=== PATIENT | female | born 1970 | race Two or more races ===

== ENCOUNTER → 2016-04-26 | Outpatient (CLI) | payer BC ==
[~2016-04-26] MED LIST: CINN500C7 PO; LOSA50TA6 BC; METF-312 PO; MULT-569 PO; OMEG306C OR; PANT40T PO; TURM500C3 PO
[2016-04-26 10:40] LABS: Basophils # (auto) 0 uL; Basophils % (auto) 0.5 % (0.0-2.0); Eosinophils # (auto) 0.1 uL; Eosinophils % (auto) 2.1 % (0.0-7.0); Hematocrit 43.8 % (36.0-46.0); Hemoglobin 14.8 g/dL (12.2-16.2); Lymphocytes # (auto) 2.6 uL; Lymphocytes % (auto) 41.4 % (10.0-50.0); Mean Corpuscular Hemoglobin 28.4 pg (28.0-32.0); Mean Corpuscular Hgb Conc. 33.8 g/dL (32.0-36.0); Mean Platelet Volume 9.4 fL (7.4-10.4); Monocytes # (auto) 0.3 uL; Monocytes % (auto) 5.5 % (0.0-12.0); Neutrophils # (auto) 3.1 uL; Neutrophils % (auto) 50.5 % (37.0-80.0); Platelet Count (auto) 213 10^3/uL (140-450); Red Cell Distribution Width 12.2 % (11.6-16.0); White Blood Cell 6.2 10^3/uL (4.4-10.8)
[2016-04-26 10:46] LABS: Urine Bilirubin Negative (Negative); Urine Blood Negative /uL (Negative); Urine Color Yellow (Yellow); Urine Ketone Negative (Negative); Urine Nitrite Negative (Negative); Urine RBC 1 /hpf (0 - 4); Urine Squamous Epithelial Cell FEW /hpf (<5); Urine Urobilinogen Normal (Negative); Urine pH 6.5 (5.0-8.0)
[2016-04-26 10:50] LABS: Urine Glucose 4+ mg/dL (Normal)
[2016-04-26 10:55] LABS: Albumin 4.1 g/dL (3.4-5.0); Alkaline Phosphatase 171 U/L (45-117); Anion Gap 8 (5-15); Aspartate Aminotransferase 23 U/L (15-37); BUN/Creatinine Ratio 15.5; Bilirubin, Total 0.5 mg/dL (0.2-1.0); Blood Urea Nitrogen 11 mg/dL (7-18); Calcium 9.1 mg/dL (8.5-10.1); Carbon Dioxide 30 mmol/L (21-32); Chloride 101 mmol/L (98-107); Cholesterol 254 mg/dL (<200); GFR African American 114 mL/min; GFR Non-African American 94 mL/min; Glucose 300 mg/dL (74-106); HDL Cholesterol 41 mg/dL (40-59); Sodium 139 mmol/L (136-145); Total Protein 7.9 g/dL (6.4-8.2); Triglycerides 411 mg/dL (<150)
== END | disposition home or self-care (01) ==
LOC: LAB 10:16
PROVIDERS: ATTEND Internal Medicine
DX: I10 Essential (primary) hypertension (principal); E78.2 Mixed hyperlipidemia; Z00.00 Encounter for general adult medical examination without abnormal findings; E11.9 Type 2 diabetes mellitus without complications
CPT/HCPCS: 36415; 80053; 80061; 81001; 82043; 83036; 84443; 85025

== ENCOUNTER → 2016-05-09 | Day surgery (SDC) | payer BC ==
[2016-05-08 16:54] LABS: Urine Bilirubin Negative (Negative); Urine Blood Negative /uL (Negative); Urine Color Yellow (Yellow); Urine Ketone Negative (Negative); Urine Nitrite Negative (Negative); Urine RBC <1 /hpf (0 - 4); Urine Squamous Epithelial Cell FEW /hpf (<5); Urine Urobilinogen Normal (Negative)
[2016-05-08 16:58] LABS: Urine Glucose 4+ mg/dL (Normal)
[2016-05-08 16:59] LABS: Basophils # (auto) 0 uL; Basophils % (auto) 0.4 % (0.0-2.0); Eosinophils # (auto) 0.1 uL; Hematocrit 42.4 % (36.0-46.0); Hemoglobin 14.5 g/dL (12.2-16.2); Lymphocytes % (auto) 42.9 % (10.0-50.0); Mean Corpuscular Hemoglobin 28.6 pg (28.0-32.0); Mean Corpuscular Hgb Conc. 34.2 g/dL (32.0-36.0); Mean Corpuscular Volume 83.8 fL (80.0-100.0); Mean Platelet Volume 10.5 fL (7.4-10.4); Monocytes # (auto) 0.4 uL; Monocytes % (auto) 5.6 % (0.0-12.0); Neutrophils # (auto) 3.4 uL; Neutrophils % (auto) 49.1 % (37.0-80.0); Platelet Count (auto) 229 10^3/uL (140-450); Red Cell Distribution Width 12.3 % (11.6-16.0); White Blood Cell 6.9 10^3/uL (4.4-10.8)
[2016-05-08 17:07] LABS: INR 0.94 (0.9-1.15); Partial Thromboplastin Time 26.1 sec (22.64-33.71); Prothrombin Time 10.1 sec (9.37-12.3)
[2016-05-08 17:25] LABS: Albumin 4.1 g/dL (3.4-5.0); BUN/Creatinine Ratio 13.6; Bilirubin, Total 0.4 mg/dL (0.2-1.0); Calcium 9.6 mg/dL (8.5-10.1); Potassium 3.6 mmol/L (3.5-5.1); Total Protein 7.6 g/dL (6.4-8.2)
[~2016-05-09] VITALS: Ht 30.5 cm; Wt 0.5 kg
[~2016-05-09] MED LIST changes: +BUPIVACAINE 0.75% INJ 10ML MPV SDV IJ ONE; +DEXAMETHASONE SOD PHOS 10MG/1ML VIAL INJ ONE; +GLYCOPYRROLATE 0.2 MG/ML 1ML VIAL ONE; +HYDROmorphone HCL 2 MG/ML VL ONE; +KETOROLAC TROMETH 60MG/2ML VIAL IM ONE; +MIDAZOLAM HCL 1MG/1ML-2 ML VIAL ONE; +ONDANSETRON HCL 4 MG/2 ML VIAL IV ONE; +ONDANSETRON HCL 4 MG/2 ML VIAL ONE; +PROPOFOL 10 MG/ML 20 ML IV ONE; +SODIUM CHLORIDE LOCK 20 ML ONE; +ceFAZolin 1GM VL ONE; +ceFAZolin 1GM/50ML D5W 50 ML IV ONE; +fentaNYL CITRATE 100 MCG/2 ML VL ONE
[2016-05-09] MEDS: HYDROmorphone HCL 2 MG/ML VL IV PRN ×2 (14:55→15:05)
[2016-05-09 15:44] VITALS: BP 122/84
== END | disposition home or self-care (01) ==
LOC: SUR 09:42
PROVIDERS: ATTEND Podiatrist Foot & Ankle Surgery
DX: M21.611 Bunion of right foot (principal); M21.621 Bunionette of right foot; I10 Essential (primary) hypertension; J40 Bronchitis, not specified as acute or chronic; E11.9 Type 2 diabetes mellitus without complications; E78.5 Hyperlipidemia, unspecified; E66.9 Obesity, unspecified; E78.00 Pure hypercholesterolemia, unspecified; K21.9 Gastro-esophageal reflux disease without esophagitis; Z90.710 Acquired absence of both cervix and uterus; B19.10 Unspecified viral hepatitis B without hepatic coma
CPT/HCPCS: 28113; 28296; 36415; 80053; 81001; 82962; 84702; 85025; 85610; 85730; C1713; C1769; J0690; J1100; J1170; J1885; J2250; J2405; J2704; J3010; J3490; L3260; V2790

== ENCOUNTER → 2016-05-29 | Day surgery (SDC) | payer BC ==
[2016-05-28 12:23] LABS: Basophils # (auto) 0 uL; Basophils % (auto) 0.5 % (0.0-2.0); Eosinophils # (auto) 0.1 uL; Eosinophils % (auto) 2.1 % (0.0-7.0); Hematocrit 44.6 % (36.0-46.0); Hemoglobin 14.7 g/dL (12.2-16.2); Lymphocytes # (auto) 2.5 uL; Lymphocytes % (auto) 42.3 % (10.0-50.0); Mean Corpuscular Hemoglobin 27.7 pg (28.0-32.0); Mean Platelet Volume 10.1 fL (7.4-10.4); Monocytes # (auto) 0.4 uL; Monocytes % (auto) 6.2 % (0.0-12.0); Neutrophils # (auto) 2.9 uL; Neutrophils % (auto) 48.9 % (37.0-80.0); Platelet Count (auto) 217 10^3/uL (140-450); Red Cell Distribution Width 12.4 % (11.6-16.0)
[2016-05-28 12:28] LABS: Urine Bilirubin Negative (Negative); Urine Blood Negative /uL (Negative); Urine Color Yellow (Yellow); Urine Ketone Negative (Negative); Urine Nitrite Negative (Negative); Urine RBC <1 /hpf (0 - 4); Urine Squamous Epithelial Cell FEW /hpf (<5); Urine Urobilinogen Normal (Negative); Urine pH 5.5 (5.0-8.0)
[2016-05-28 12:32] LABS: Urine Glucose 4+ mg/dL (Normal)
[2016-05-28 12:41] LABS: INR 0.96 (0.9-1.15); Partial Thromboplastin Time 25.4 sec (22.64-33.71); Prothrombin Time 10.4 sec (9.37-12.3)
[2016-05-28 12:42] LABS: Albumin 4.1 g/dL (3.4-5.0); BUN/Creatinine Ratio 18.6; Bilirubin, Total 0.5 mg/dL (0.2-1.0); Calcium 9.6 mg/dL (8.5-10.1); Potassium 3.9 mmol/L (3.5-5.1); Total Protein 7.5 g/dL (6.4-8.2)
[~2016-05-29] VITALS: Ht 167.6 cm; Wt 85.3 kg
[~2016-05-29] MED LIST changes: +ACCU-CHEK COMFORT CURVE STRIP VI ONE; -BUPIVACAINE 0.75% INJ 10ML MPV SDV IJ ONE; -DEXAMETHASONE SOD PHOS 10MG/1ML VIAL INJ ONE; -GLYCOPYRROLATE 0.2 MG/ML 1ML VIAL ONE; +HYDROmorphone HCL 2 MG/ML VL IV PRN; -HYDROmorphone HCL 2 MG/ML VL ONE; +InsuLIN REG 1unit/0.01ml Soln (100units/ml) ONE; +KETOROLAC TROMETH 30 MG/ML 1ML VIAL IV ONE; +KETOROLAC TROMETH 30 MG/ML 1ML VIAL ONE; -KETOROLAC TROMETH 60MG/2ML VIAL IM ONE; +LABETALOL HCL 5 MG/ML 4ML SYRINGE IV PRN; -LOSA50TA6 BC; +LOSA50TA6 OR; +MIDAZOLAM HCL 1MG/1ML-2 ML VIAL IV PRN; +MORPHINE SULF INJ 2 MG/ML SYRINGE 1ML IV PRN; -ONDANSETRON HCL 4 MG/2 ML VIAL ONE; -SODIUM CHLORIDE LOCK 20 ML ONE; -ceFAZolin 1GM VL ONE; +ePHEDrine SULFATE 50 MG/ML AMP IV PRN
[2016-05-29 09:49] VITALS: BP 116/83
== END ==
LOC: SUR 06:59
PROVIDERS: ATTEND Urology
DX: N20.0 Calculus of kidney (principal); I10 Essential (primary) hypertension; E78.00 Pure hypercholesterolemia, unspecified; E11.9 Type 2 diabetes mellitus without complications; J45.909 Unspecified asthma, uncomplicated; E66.9 Obesity, unspecified; Z68.31 Body mass index [BMI] 31.0-31.9, adult; E78.5 Hyperlipidemia, unspecified; Z90.710 Acquired absence of both cervix and uterus
CPT/HCPCS: 36415; 50590; 80053; 81001; 82962; 84702; 85025; 85610; 85730; J0690; J1815; J1885; J2250; J2704; J3010

== ENCOUNTER → 2016-08-08 | Outpatient (CLI) | payer BC ==
[~2016-08-08] MED LIST changes: -ACCU-CHEK COMFORT CURVE STRIP VI ONE; -HYDROmorphone HCL 2 MG/ML VL IV PRN; -InsuLIN REG 1unit/0.01ml Soln (100units/ml) ONE; -KETOROLAC TROMETH 30 MG/ML 1ML VIAL IV ONE; -KETOROLAC TROMETH 30 MG/ML 1ML VIAL ONE; -LABETALOL HCL 5 MG/ML 4ML SYRINGE IV PRN; -METF-312 PO; +METF-370 PO; -MIDAZOLAM HCL 1MG/1ML-2 ML VIAL IV PRN; -MIDAZOLAM HCL 1MG/1ML-2 ML VIAL ONE; -MORPHINE SULF INJ 2 MG/ML SYRINGE 1ML IV PRN; -ONDANSETRON HCL 4 MG/2 ML VIAL IV ONE; -PROPOFOL 10 MG/ML 20 ML IV ONE; -ceFAZolin 1GM/50ML D5W 50 ML IV ONE; -ePHEDrine SULFATE 50 MG/ML AMP IV PRN; -fentaNYL CITRATE 100 MCG/2 ML VL ONE
[2016-08-08 10:20] LABS: Urine RBC None Seen /hpf (0 - 4)
[2016-08-08 10:42] LABS: Urine Bilirubin Negative (Negative); Urine Blood Negative /uL (Negative); Urine Color Yellow (Yellow); Urine Ketone Negative (Negative); Urine Nitrite Negative (Negative); Urine Squamous Epithelial Cell FEW /hpf (<5); Urine Urobilinogen Normal (Negative); Urine pH 5.5 (5.0-8.0)
[2016-08-08 10:45] LABS: Urine Glucose 4+ mg/dL (Normal)
[2016-08-08 11:05] LABS: BUN/Creatinine Ratio 20.9
== END | disposition home or self-care (01) ==
LOC: LAB 09:50
PROVIDERS: ATTEND Internal Medicine
DX: E78.2 Mixed hyperlipidemia (principal)
CPT/HCPCS: 36415; 80048; 80061; 81001; 83036

== ENCOUNTER → 2016-11-21 | Outpatient (CLI) | payer BC ==
[~2016-11-21] MED LIST changes: +GLIP-116 PO; +INSUINJ37 SUBCUT; -METF-370 PO
[2016-11-22 06:06] LABS: Rheumatoid Arthritis Factor <10.0 IU/mL (0.0-13.9)
== END | disposition home or self-care (01) ==
LOC: LAB 12:06
PROVIDERS: ATTEND Internal Medicine
DX: M25.50 Pain in unspecified joint (principal); E11.9 Type 2 diabetes mellitus without complications
CPT/HCPCS: 36415; 83036; 86038; 86431; 86812

== ENCOUNTER 2016-11-23 08:39 | Day surgery (SDC) | payer BC ==
[2016-11-19 12:11] LABS: Basophils # (auto) 0 uL; Basophils % (auto) 0.2 % (0.0-2.0); Eosinophils # (auto) 0.1 uL; Eosinophils % (auto) 2.3 % (0.0-7.0); Hematocrit 43.8 % (36.0-46.0); Hemoglobin 14.9 g/dL (12.2-16.2); Lymphocytes # (auto) 2.6 uL; Lymphocytes % (auto) 48.1 % (10.0-50.0); Mean Corpuscular Hemoglobin 29.6 pg (28.0-32.0); Mean Corpuscular Hgb Conc. 33.9 g/dL (32.0-36.0); Mean Corpuscular Volume 87.1 fL (80.0-100.0); Mean Platelet Volume 10.1 fL (6.9-10.8); Monocytes # (auto) 0.4 uL; Monocytes % (auto) 7.1 % (0.0-12.0); Neutrophils # (auto) 2.3 uL; Neutrophils % (auto) 42.3 % (37.0-80.0); Nucleated Red Blood Cells % 0.2 %; Platelet Count (auto) 194 10^3/uL (140-450); Red Cell Distribution Width 12.9 % (11.8-14.3); White Blood Cell 5.5 10^3/uL (4.4-10.8)
[2016-11-19 12:48] LABS: INR 0.94 (0.9-1.15); Partial Thromboplastin Time 27.1 sec (22.64-33.71); Prothrombin Time 10.2 sec (9.37-12.3)
[~2016-11-23] VITALS: Ht 167.6 cm; Wt 88.0 kg
[2016-11-23] MEDS ORDERED: SODIUM CHLORIDE LOCK 10 ML ONE (10:31)
[2016-11-23] MEDS ORDERED: diphenhdrAMINE HCL 50 MG/1 ML VL ONE (10:32)
[2016-11-23] MEDS: MIDAZOLAM HCL 5 MG/ML-1ML VIAL ONE ×3 (10:34→10:46)
[2016-11-23] MEDS: fentaNYL CITRATE 100 MCG/2 ML VL ONE ×3 (10:34→10:46)
[2016-11-23 11:31] VITALS: BP 140/82
== END 2016-11-23 11:36 | disposition home or self-care (01) ==
LOC: GI 08:39
PROVIDERS: ATTEND Internal Medicine Gastroenterology
DX: K57.30 Diverticulosis of large intestine without perforation or abscess without bleeding (principal); K64.8 Other hemorrhoids; J40 Bronchitis, not specified as acute or chronic; Z90.710 Acquired absence of both cervix and uterus; E11.9 Type 2 diabetes mellitus without complications
CPT/HCPCS: 36415; 45378; 82962; 85025; 85610; 85730; 88305; J1200; J2250; J3010; J7030; 99152

== ENCOUNTER → 2017-04-17 | Outpatient (CLI) | payer BC ==
[2017-04-17 10:02] LABS: BUN/Creatinine Ratio 14.7; Bilirubin, Total 0.7 mg/dL (0.2-1.0); Calcium 9.2 mg/dL (8.5-10.1); Potassium 4.2 mmol/L (3.5-5.1); Total Protein 7.5 g/dL (6.4-8.2)
== END | disposition home or self-care (01) ==
LOC: LAB 08:49
PROVIDERS: ATTEND Internal Medicine
DX: E11.9 Type 2 diabetes mellitus without complications (principal); K76.0 Fatty (change of) liver, not elsewhere classified; E78.00 Pure hypercholesterolemia, unspecified
CPT/HCPCS: 36415; 80053; 83036; 84443; 84478

== ENCOUNTER → 2017-11-08 | Outpatient (CLI) | payer BC ==
[~2017-11-08] MED LIST changes: +LOSA-46 OR; -LOSA50TA6 OR
[2017-11-08 10:11] LABS: Urine Bacteria FEW /hpf (None Seen); Urine Blood Negative /uL (Negative); Urine WBC 2 /hpf (0 - 5)
[2017-11-08 10:30] LABS: Basophils # (auto) 0 uL; Basophils % (auto) 0.5 % (0.0-2.0); Eosinophils # (auto) 0.1 uL; Eosinophils % (auto) 2.3 % (0.0-7.0); Hematocrit 43.3 % (36.0-46.0); Hemoglobin 14.8 g/dL (12.2-16.2); Lymphocytes # (auto) 2.1 uL; Lymphocytes % (auto) 36.8 % (10.0-50.0); Mean Corpuscular Hemoglobin 29.2 pg (28.0-32.0); Mean Corpuscular Hgb Conc. 34.3 g/dL (32.0-36.0); Mean Corpuscular Volume 85.2 fL (80.0-100.0); Monocytes # (auto) 0.3 uL; Monocytes % (auto) 5.7 % (0.0-12.0); Neutrophils # (auto) 3.1 uL; Neutrophils % (auto) 54.7 % (37.0-80.0); Nucleated Red Blood Cells % 0.1 %; Platelet Count (auto) 176 10^3/uL (140-450); Red Blood Cells 5.08 10^6/uL (4.0-5.20); Red Cell Distribution Width 12.4 % (11.8-14.3); White Blood Cell 5.7 10^3/uL (4.4-10.8)
[2017-11-08 10:40] LABS: Free T4 (Free Thyroxine) 1.06 ng/dL (0.89-1.76)
[2017-11-08 10:43] LABS: Alanine Aminotransferase 91 U/L (13-56); Albumin 4.1 g/dL (3.4-5.0); Alkaline Phosphatase 178 U/L (45-117); Anion Gap 5 (5-15); Aspartate Aminotransferase 39 U/L (15-37); BUN/Creatinine Ratio 18.4; Bilirubin, Total 0.5 mg/dL (0.2-1.0); Blood Urea Nitrogen 14 mg/dL (7-18); Calcium 9.3 mg/dL (8.5-10.1); Carbon Dioxide 28 mmol/L (21-32); Chloride 101 mmol/L (98-107); Cholesterol 267 mg/dL (< 200); GFR African American 104 mL/min; GFR Non-African American 86 mL/min; Glucose 330 mg/dL (74-106); HDL Cholesterol 30 mg/dL (40-59); Potassium 4.1 mmol/L (3.5-5.1); Sodium 134 mmol/L (136-145); Total Protein 7.6 g/dL (6.4-8.2); Triglycerides 678 mg/dL (< 150)
== END | disposition home or self-care (01) ==
LOC: LAB 09:02
PROVIDERS: ATTEND Internal Medicine
DX: I10 Essential (primary) hypertension (principal); E11.9 Type 2 diabetes mellitus without complications; E55.9 Vitamin D deficiency, unspecified
CPT/HCPCS: 36415; 80053; 80061; 81001; 82043; 82306; 82607; 83036; 84439; 84443; 85025; 85652

== ENCOUNTER → 2017-12-12 | Outpatient (CLI) | payer BC ==
[2017-12-12 11:00] LABS: Basophils # (auto) 0 uL; Basophils % (auto) 0.5 % (0.0-2.0); Eosinophils # (auto) 0.2 uL; Eosinophils % (auto) 2.9 % (0.0-7.0); Hematocrit 41.7 % (36.0-46.0); Hemoglobin 14.1 g/dL (12.2-16.2); Lymphocytes # (auto) 2.5 uL; Lymphocytes % (auto) 47.4 % (10.0-50.0); Mean Corpuscular Hemoglobin 29.1 pg (28.0-32.0); Mean Corpuscular Hgb Conc. 33.7 g/dL (32.0-36.0); Mean Corpuscular Volume 86.2 fL (80.0-100.0); Monocytes # (auto) 0.3 uL; Monocytes % (auto) 5.9 % (0.0-12.0); Neutrophils # (auto) 2.3 uL; Neutrophils % (auto) 43.3 % (37.0-80.0); Nucleated Red Blood Cells % 0.2 %; Platelet Count (auto) 180 10^3/uL (140-450); Red Blood Cells 4.83 10^6/uL (4.0-5.20); White Blood Cell 5.2 10^3/uL (4.4-10.8)
[2017-12-12 12:11] LABS: Albumin 3.8 g/dL (3.4-5.0); Calcium 8.4 mg/dL (8.5-10.1)
[2017-12-12 12:15] LABS: BUN/Creatinine Ratio 12.3; Bilirubin, Total 0.4 mg/dL (0.2-1.0); Total Protein 7.4 g/dL (6.4-8.2)
== END | disposition home or self-care (01) ==
LOC: LAB 10:34
PROVIDERS: ATTEND Internal Medicine
DX: E11.9 Type 2 diabetes mellitus without complications (principal); R10.9 Unspecified abdominal pain; R19.7 Diarrhea, unspecified
CPT/HCPCS: 36415; 80053; 82150; 83690; 85025; 85652

== ENCOUNTER → 2018-04-01 | Outpatient (CLI) | payer BC ==
[2018-04-01 13:03] LABS: Basophils # (auto) 0 uL; Basophils % (auto) 0.4 % (0.0-2.0); Eosinophils # (auto) 0.1 uL; Eosinophils % (auto) 2.2 % (0.0-7.0); Hematocrit 46.1 % (36.0-46.0); Hemoglobin 15.5 g/dL (12.2-16.2); Lymphocytes # (auto) 2.8 uL; Lymphocytes % (auto) 44.1 % (10.0-50.0); Mean Corpuscular Hemoglobin 28.9 pg (28.0-32.0); Mean Corpuscular Hgb Conc. 33.6 g/dL (32.0-36.0); Monocytes # (auto) 0.4 uL; Monocytes % (auto) 6.2 % (0.0-12.0); Neutrophils % (auto) 47.1 % (37.0-80.0); Nucleated Red Blood Cells % 0.2 %; Platelet Count (auto) 195 10^3/uL (140-450); Red Blood Cells 5.36 10^6/uL (4.0-5.20); Red Cell Distribution Width 12.7 % (11.8-14.3); White Blood Cell 6.3 10^3/uL (4.4-10.8)
[2018-04-01 14:01] LABS: Albumin 4.2 g/dL (3.4-5.0); Anion Gap 3 (5-15); Blood Urea Nitrogen 11 mg/dL (7-18); Carbon Dioxide 30 mmol/L (21-32); Chloride 102 mmol/L (98-107); Glucose 288 mg/dL (74-106); Potassium 4.3 mmol/L (3.5-5.1); Sodium 135 mmol/L (136-145)
[2018-04-01 14:07] LABS: Alanine Aminotransferase 72 U/L (13-56); Alkaline Phosphatase 165 U/L (45-117); Aspartate Aminotransferase 27 U/L (15-37); BUN/Creatinine Ratio 15.7; Bilirubin, Total 0.6 mg/dL (0.2-1.0); Cholesterol 291 mg/dL (< 200); GFR African American 115 mL/min; GFR Non-African American 95 mL/min; HDL Cholesterol 37 mg/dL (40-59); Total Protein 7.8 g/dL (6.4-8.2); Triglycerides 459 mg/dL (< 150)
== END | disposition home or self-care (01) ==
LOC: LAB 12:27
PROVIDERS: ATTEND Internal Medicine
DX: E11.9 Type 2 diabetes mellitus without complications (principal); I10 Essential (primary) hypertension; R52 Pain, unspecified
CPT/HCPCS: 36415; 80053; 80061; 83036; 85025; 85652; 87804

== ENCOUNTER 2020-03-01 11:26 | Inpatient (IN) | payer BC ==
[~2020-03-01] VITALS: Ht 167.6 cm; Wt 78.1 kg
[~2020-03-01 11:26] MED LIST changes: -GLIP-116 PO; +GLIP10TA9 PO; -LOSA-46 OR; +LOSA-69 OR; -MULT-569 PO; +MULT1TAB28 PO
[2020-03-01] MEDS ORDERED: SODIUM CHLORIDE 0.9% 1,000 ML IV ONE ×2 (11:45)
[2020-03-01] MEDS ORDERED: InsuLIN REG 1unit/0.01ml Soln (100units/ml) IV ONE (11:45)
[2020-03-01 12:05] LABS: Basophils # (auto) 0 10 ^3/uL (0-0.2); Basophils % (auto) 0.4 % (0.0-2.0); Eosinophils # (auto) 0.2 10 ^3/uL (0-0.8); Eosinophils % (auto) 2.3 % (0.0-7.0); Hematocrit 42.1 % (36.0-46.0); Hemoglobin 14.9 g/dL (12.2-16.2); Lymphocytes # (auto) 1.9 10 ^3/uL (0.4-5.4); Lymphocytes % (auto) 19.7 % (10.0-50.0); Mean Corpuscular Hemoglobin 29.1 pg (28.0-32.0); Mean Corpuscular Hgb Conc. 35.3 g/dL (32.0-36.0); Mean Corpuscular Volume 82.6 fL (80.0-100.0); Monocytes # (auto) 0.7 10 ^3/uL (0-1.3); Monocytes % (auto) 6.8 % (0.0-12.0); Neutrophils # (auto) 6.9 10 ^3/uL (1.6-8.6); Neutrophils % (auto) 70.8 % (37.0-80.0); Nucleated Red Blood Cells % 0.1 %; Red Cell Distribution Width 12.3 % (11.8-14.3); White Blood Cell 9.8 10^3/uL (4.4-10.8)
[2020-03-01] MEDS ORDERED: DexAMETHasone SOD PHOS 10MG/1ML VIAL INJ IV ONE (13:00)
[2020-03-01] MEDS ORDERED: cefTRIAXone 1GM/50ML D5W 50 ML IV ONE (13:00)
[2020-03-01] MEDS ORDERED: AZITHROMYCIN 500MG/ 250ML 250 ML IV ONE (13:00)
[2020-03-01 13:06] LABS: Calcium 8.7 mg/dL (8.5-10.1); Chloride 99 mmol/L (98-107); Potassium 4.1 mmol/L (3.5-5.1); Sodium 131 mmol/L (136-145)
[2020-03-01 13:15] LABS: Alanine Aminotransferase 34 U/L (13-56); Alkaline Phosphatase 153 U/L (45-117); Anion Gap 8 (5-15); Aspartate Aminotransferase 17 U/L (15-37); BUN/Creatinine Ratio 13.6; Bilirubin, Total 0.7 mg/dL (0.2-1.0); Blood Urea Nitrogen 9 mg/dL (7-18); Carbon Dioxide 24 mmol/L (21-32); GFR African American 122 mL/min; GFR Non-African American 101 mL/min; Glucose 353 mg/dL (74-106); Total Protein 7.8 g/dL (6.4-8.2)
[2020-03-01] MEDS ORDERED: MORPHINE SULFATE INJECTION 2 MG/ML SYRG IV PRN ×3 (14:00→15:00)
[2020-03-01] MEDS ORDERED: NITROGLYCERIN 0.4 MG SL TAB SL PRN ×2 (14:00→15:00)
[2020-03-01] MEDS ORDERED: ALBUTEROL SULF HFA 90MCG INH 200DOSE IN PRN (15:00)
[2020-03-01] MEDS ORDERED: FUROSEMIDE 100 MG/10ML VIAL IV ONE (15:00)
[2020-03-01] MEDS ORDERED: ACETAMINOPHEN 500 MG TAB PO PRN (15:00)
[2020-03-01] MEDS ORDERED: LORazepam 0.5 MG TAB PO PRN (15:00)
[2020-03-01] MEDS ORDERED: DEXTROSE (50%) 50ML SYRG IV PRN (15:00)
[2020-03-01] MEDS ORDERED: ONDANSETRON HCL 4 MG/2 ML VIAL IV PRN (15:00)
[2020-03-01] MEDS ORDERED: DOCUSATE SOD 100 MG CAP PO PRN (15:00)
[2020-03-01] MEDS ORDERED: ALUM & MAG HYDROX-SIMETH LIQ(MAALOX) 30 ML PO PRN (15:00)
[2020-03-01] MEDS ORDERED: IBUP200C14 PO (15:13)
[2020-03-01] MEDS ORDERED: ASPI325T4 PO (15:26)
[2020-03-01] MEDS ORDERED: MULTTAB48 PO (15:26)
[2020-03-01] MEDS ORDERED: OMEG306C PO (15:26)
[2020-03-01] MEDS ORDERED: ASCO100076 PO (15:26)
[2020-03-01] MEDS ORDERED: POM PO (15:26)
[2020-03-01] MEDS ORDERED: PENI500T2 PO (15:28)
[2020-03-01] MEDS ORDERED: ELDE1SYP PO (15:28)
[2020-03-01 15:32] LABS: Magnesium 1.8 mg/dL (1.6-2.6)
[2020-03-01 15:41] LABS: CRP High Sensitivity 6.29 mg/dL (< 0.3)
[2020-03-01] MEDS: ACCU-CHEK COMFORT CURVE STRIP VI SCH ×2 (17:03→21:47)
[2020-03-01] MEDS: InsuLIN REG 1unit/0.01ml Soln (100units/ml) SC SCH ×2 (17:04→21:46)
[2020-03-01 18:15] LABS: Cholesterol 208 mg/dL (< 200); HDL Cholesterol 28 mg/dL (40-59); Triglycerides 536 mg/dL (< 150)
[2020-03-01 21:00] LABS: Urine Bacteria NONE SEEN /hpf (None Seen); Urine Blood Negative /uL (Negative); Urine Specific Gravity 1.025 (1.001-1.035); Urine WBC 3 /hpf (0 - 5)
[2020-03-01 21:13] LABS: Amphetamine Screen, Urine NEGATIVE (NEGATIVE); Barbiturate Scree,Urine NEGATIVE (NEGATIVE); Benzodiazephine Screen, Urine NEGATIVE (NEGATIVE); Cannabinoid Screen, Urine NEGATIVE (NEGATIVE); Cocaine Screen, Urine NEGATIVE (NEGATIVE); Opiate Scree,Urine NEGATIVE (NEGATIVE); Phencyclidine Screen, Urine NEGATIVE (NEGATIVE)
[2020-03-01] MEDS: FAMOTIDINE (10MG/ML) 2ML VL IV SCH (21:46)
[2020-03-01] MEDS: ATORVASTATIN 20 MG TAB PO SCH (21:46)
[2020-03-01] MEDS: INSULIN LANTUS (GLARGINE) 1 /0.01ml (100units/ml) SC SCH (21:47)
[2020-03-01] MEDS: ENOXAPARIN SOD 40 MG/0.4 ML SYRINGE SC SCH (21:47)
[2020-03-01] MEDS ORDERED: BUDESONIDE (INHALATION) 180 MCG IH IN SCH (22:00)
[2020-03-02 05:39] VITALS: BP 154/85
[2020-03-02] MEDS: FUROSEMIDE 20 MG/2 ML VIAL IV SCH ×2 (05:41→17:13)
[2020-03-02] MEDS: InsuLIN REG 1unit/0.01ml Soln (100units/ml) SC SCH ×4 (05:42→21:30)
[2020-03-02] MEDS: ACCU-CHEK COMFORT CURVE STRIP VI SCH ×4 (05:43→21:30)
[2020-03-02] MEDS: HYDROcodone-ACET 5/325MG TAB PO PRN (05:46)
[2020-03-02 08:00] VITALS: BP 125/71
[2020-03-02 09:19] LABS: Basophils # (auto) 0 10 ^3/uL (0-0.2); Basophils % (auto) 0.3 % (0.0-2.0); Eosinophils # (auto) 0.1 10 ^3/uL (0-0.8); Eosinophils % (auto) 0.6 % (0.0-7.0); Lymphocytes # (auto) 1.8 10 ^3/uL (0.4-5.4); Lymphocytes % (auto) 16.7 % (10.0-50.0); Mean Corpuscular Hemoglobin 28.4 pg (28.0-32.0); Mean Corpuscular Hgb Conc. 34.3 g/dL (32.0-36.0); Mean Corpuscular Volume 82.8 fL (80.0-100.0); Monocytes # (auto) 0.8 10 ^3/uL (0-1.3); Monocytes % (auto) 7.1 % (0.0-12.0); Neutrophils # (auto) 8.1 10 ^3/uL (1.6-8.6); Neutrophils % (auto) 75.3 % (37.0-80.0); Nucleated Red Blood Cells % 0.1 %; Red Blood Cells 4.59 10^6/uL (4.0-5.20); Red Cell Distribution Width 12.4 % (11.8-14.3); White Blood Cell 10.8 10^3/uL (4.4-10.8)
[2020-03-02 09:44] LABS: INR 1.01 (0.9-1.15); Partial Thromboplastin Time 25.6 sec (23.0-31.2)
[2020-03-02 09:49] LABS: Albumin 2.7 g/dL (3.4-5.0); Calcium 8.5 mg/dL (8.5-10.1); Magnesium 1.9 mg/dL (1.6-2.6); Potassium 3.5 mmol/L (3.5-5.1)
[2020-03-02] MEDS: ENOXAPARIN SOD 40 MG/0.4 ML SYRINGE SC SCH ×2 (09:51→21:30)
[2020-03-02] MEDS: FAMOTIDINE (10MG/ML) 2ML VL IV SCH ×2 (09:51→21:30)
[2020-03-02] MEDS: AZITHROMYCIN 500MG/ 250ML 250 ML IV SCH (09:52)
[2020-03-02] MEDS: ASPirin 81 mg TAB PO SCH (09:52)
[2020-03-02] MEDS: cefTRIAXone 1GM/50ML D5W 50 ML IV SCH (09:52)
[2020-03-02 09:53] LABS: BUN/Creatinine Ratio 22.4; Bilirubin, Total 0.4 mg/dL (0.2-1.0); Phosphorus 2.6 mg/dL (2.5-4.90); Total Protein 6.8 g/dL (6.4-8.2)
[2020-03-02] MEDS ORDERED: ASCORBIC ACID 1,000 MG TAB PO SCH (10:00)
[2020-03-02] MEDS ORDERED: CHOLECALCIFEROL (VITD3) 2,000 UNIT CAP/TAB PO SCH (10:00)
[2020-03-02] MEDS ORDERED: ZINC SULFATE 220mg CAP or TAB PO SCH (10:00)
[2020-03-02] MEDS ORDERED: DexAMETHasone SOD PHOS 10MG/1ML VIAL INJ IV SCH (10:00)
[2020-03-02 16:14] VITALS: BP 111/76
[2020-03-02 20:00] VITALS: BP 125/73
[2020-03-02] MEDS: INSULIN LANTUS (GLARGINE) 1 /0.01ml (100units/ml) SC SCH (21:30)
[2020-03-02] MEDS: ATORVASTATIN 20 MG TAB PO SCH (21:30)
[2020-03-02 22:00] VITALS: BP 125/73
[2020-03-03] VITALS: BP 125/73
[2020-03-03 05:30] VITALS: BP 117/79
[2020-03-03] MEDS: FUROSEMIDE 20 MG/2 ML VIAL IV SCH (06:25)
[2020-03-03] MEDS: ACCU-CHEK COMFORT CURVE STRIP VI SCH ×2 (06:36→11:40)
[2020-03-03] MEDS: InsuLIN REG 1unit/0.01ml Soln (100units/ml) SC SCH ×2 (06:42→12:20)
[2020-03-03 08:00] VITALS: BP 104/73
[2020-03-03] MEDS: FAMOTIDINE (10MG/ML) 2ML VL IV SCH (09:02)
[2020-03-03] MEDS: ASPirin 81 mg TAB PO SCH (09:03)
[2020-03-03] MEDS: cefTRIAXone 1GM/50ML D5W 50 ML IV SCH (09:09)
[2020-03-03] MEDS: ENOXAPARIN SOD 40 MG/0.4 ML SYRINGE SC SCH (09:10)
[2020-03-03] MEDS: AZITHROMYCIN 500MG/ 250ML 250 ML IV SCH (09:10)
[2020-03-03] MEDS: HYDROcodone-ACET 5/325MG TAB PO PRN (10:30)
[2020-03-03 11:16] VITALS: BP 104/73
[2020-03-03 15:46] VITALS: BP 112/70
== END 2020-03-03 16:35 | disposition home or self-care (01) | DRG 193 ==
LOC: ER 11:26 → TELE 11:27 → TELE-CENTR 03-02 03:16
PROVIDERS: ADMIT Hospitalist; ATTEND Family Medicine
DX: J18.9 Pneumonia, unspecified organism (principal); J96.01 Acute respiratory failure with hypoxia; E44.0 Moderate protein-calorie malnutrition; E87.1 Hypo-osmolality and hyponatremia; E11.65 Type 2 diabetes mellitus with hyperglycemia; E66.9 Obesity, unspecified; E78.00 Pure hypercholesterolemia, unspecified; E78.5 Hyperlipidemia, unspecified; I10 Essential (primary) hypertension; Z20.822 Contact with and (suspected) exposure to COVID-19; Z79.4 Long term (current) use of insulin; Z83.3 Family history of diabetes mellitus; Z87.442 Personal history of urinary calculi; Z90.710 Acquired absence of both cervix and uterus; Z91.14 Patient's other noncompliance with medication regimen
CPT/HCPCS: 36415; 71045; 71275; 80053; 80061; 80307; 81001; 82306; 82728; 82962; 83036; 83605; 83615; 83735; 83880; 84100; 84443; 84484; 85025; 85379; 85610; 85730; 86141; 86710; 87040; 87086; 87088; 87186; 87426; 93005; 93306; 93970; 99291; G0378; J0696; J1100; J1815; J3490

== ENCOUNTER → 2020-07-06 | Outpatient (CLI) | payer BC ==
[~2020-07-06] MED LIST changes: +ASCO100076 PO; +ASPI325T4 PO; -CINN500C7 PO; +ELDE1SYP PO; -GLIP10TA9 PO; +IBUP200C14 PO; -INSUINJ37 SUBCUT; -LOSA-69 OR; -MULT1TAB28 PO; +MULTTAB48 PO; -OMEG306C OR; +OMEG306C PO; -PANT40T PO; +PENI500T2 PO; +POM PO; -TURM500C3 PO
[2020-07-06 10:35] LABS: Cholesterol 278 mg/dL (< 200); HDL Cholesterol 42 mg/dL (40-59); LDL Cholesterol 187 mg/dL (< 100); Triglycerides 228 mg/dL (< 150)
== END | disposition home or self-care (01) ==
LOC: LAB 09:07
PROVIDERS: ATTEND Internal Medicine
DX: I10 Essential (primary) hypertension (principal); E56.9 Vitamin deficiency, unspecified; E11.9 Type 2 diabetes mellitus without complications
CPT/HCPCS: 36415; 80061; 82306; 82607; 83036

== ENCOUNTER 2021-03-28 12:54 | Emergency (ER) | payer BC ==
[~2021-03-28] VITALS: Ht 152.4 cm; Wt 90.7 kg
[2021-03-28] MEDS ORDERED: ONDANSETRON ODT 4 MG TAB PO ONE (15:45)
[2021-03-28] MEDS ORDERED: ACETAMINOPHEN/CODEINE#3 (300/30mg) TAB PO ONE (15:45)
[2021-03-28 17:16] VITALS: BP 133/71
[2021-03-28] MEDS ORDERED: ACE3T PO (17:22)
== END 2021-03-28 18:40 | disposition home or self-care (01) ==
LOC: ER 12:54
DX: S82.54XA Nondisplaced fracture of medial malleolus of right tibia, initial encounter for closed fracture (principal); E11.9 Type 2 diabetes mellitus without complications; I10 Essential (primary) hypertension; Z90.710 Acquired absence of both cervix and uterus; V89.0XXA Person injured in unspecified motor-vehicle accident, nontraffic, initial encounter; Y93.53 Activity, golf; Y92.89 Other specified places as the place of occurrence of the external cause; Y99.8 Other external cause status
CPT/HCPCS: 29515; 73610; 73630; 99284; Q0162

== ENCOUNTER → 2021-03-31 | Outpatient (CLI) | payer BC ==
[~2021-03-31] MED LIST changes: +ACE3T PO
[2021-03-31 10:01] LABS: Urine Bacteria MOD /hpf (None Seen); Urine Blood Negative /uL (Negative); Urine Mucus FEW (None Seen); Urine WBC 402 /hpf (0 - 5)
[2021-03-31 10:17] LABS: INR 0.97 (0.9-1.15); Partial Thromboplastin Time 26.5 sec (23.6-33.0)
[2021-03-31 10:54] LABS: Basophils # (auto) 0 10 ^3/uL (0-0.2); Basophils % (auto) 0.6 % (0.0-2.0); Eosinophils # (auto) 0.1 10 ^3/uL (0-0.8); Eosinophils % (auto) 1.7 % (0.0-7.0); Hematocrit 40.2 % (36.0-46.0); Hemoglobin 13.7 g/dL (12.2-16.2); Lymphocytes % (auto) 33.7 % (10.0-50.0); Mean Corpuscular Hemoglobin 29.3 pg (28.0-32.0); Mean Corpuscular Hgb Conc. 33.9 g/dL (32.0-36.0); Mean Corpuscular Volume 86.4 fL (80.0-100.0); Monocytes # (auto) 0.4 10 ^3/uL (0-1.3); Monocytes % (auto) 6.1 % (0.0-12.0); Neutrophils # (auto) 3.4 10 ^3/uL (1.6-8.6); Neutrophils % (auto) 57.9 % (37.0-80.0); Nucleated Red Blood Cells % 0.2 %; Red Blood Cells 4.66 10^6/uL (4.0-5.20); Red Cell Distribution Width 12.6 % (11.8-14.3); White Blood Cell 5.9 10^3/uL (4.4-10.8)
[2021-03-31 11:00] LABS: Potassium 4.1 mmol/L (3.5-5.1)
[2021-03-31 11:10] LABS: Albumin 3.7 g/dL (3.4-5.0); BUN/Creatinine Ratio 24.2; Bilirubin, Total 0.5 mg/dL (0.2-1.0); Calcium 9.1 mg/dL (8.5-10.1); Total Protein 6.9 g/dL (6.4-8.2)
== END | disposition home or self-care (01) ==
LOC: LAB 09:11
PROVIDERS: ATTEND Orthopaedic Surgery Adult Reconstructive Orthopaedic Surgery
DX: R79.1 Abnormal coagulation profile (principal)
CPT/HCPCS: 36415; 80053; 81001; 81025; 84702; 85025; 85610; 85730

== ENCOUNTER 2021-09-15 12:42 | Emergency (ER) | payer BC ==
[~2021-09-15] VITALS: Ht 157.5 cm; Wt 85.9 kg
[2021-09-15 13:28] LABS: Basophils # (auto) 0 10 ^3/uL (0-0.2); Basophils % (auto) 0.6 % (0.0-2.0); Eosinophils # (auto) 0.1 10 ^3/uL (0-0.8); Eosinophils % (auto) 1.9 % (0.0-7.0); Hematocrit 44.4 % (36.0-46.0); Hemoglobin 14.3 g/dL (12.2-16.2); Lymphocytes # (auto) 2.5 10 ^3/uL (0.4-5.4); Lymphocytes % (auto) 46.1 % (10.0-50.0); Mean Corpuscular Hemoglobin 27.5 pg (28.0-32.0); Mean Corpuscular Hgb Conc. 32.3 g/dL (32.0-36.0); Mean Corpuscular Volume 85.2 fL (80.0-100.0); Monocytes # (auto) 0.4 10 ^3/uL (0-1.3); Monocytes % (auto) 6.5 % (0.0-12.0); Neutrophils # (auto) 2.4 10 ^3/uL (1.6-8.6); Neutrophils % (auto) 44.9 % (37.0-80.0); Nucleated Red Blood Cells % 0.2 %; Red Blood Cells 5.21 10^6/uL (4.0-5.20); Red Cell Distribution Width 12.7 % (11.8-14.3); White Blood Cell 5.4 10^3/uL (4.4-10.8)
[2021-09-15] MEDS ORDERED: PANT40TA2 PO (13:43)
[2021-09-15] MEDS ORDERED: PRED20TA2 PO (13:43)
[2021-09-15 13:52] LABS: INR 0.97 (0.9-1.15); Partial Thromboplastin Time 26.8 sec (24.6-33.4)
[2021-09-15 14:03] LABS: Albumin 4.1 g/dL (3.4-5.0); Calcium 9.2 mg/dL (8.5-10.1); Magnesium 1.9 mg/dL (1.6-2.6); Potassium 4.2 mmol/L (3.5-5.1)
[2021-09-15 14:07] LABS: BUN/Creatinine Ratio 17.4; Bilirubin, Total 0.4 mg/dL (0.2-1.0); Total Protein 7.2 g/dL (6.4-8.2)
[2021-09-15] MEDS ORDERED: methylPREDNISolone SOD SUCC 125 MG/2 ML VL IV ONE (14:45)
[2021-09-15] MEDS ORDERED: methylPREDNISolone SOD SUCC 125 MG/2 ML VL IM ONE (15:00)
[2021-09-15] MEDS ORDERED: HYDROcodone-ACET 5/325MG TAB PO ONE (15:00)
[2021-09-15 16:00] VITALS: BP 144/81
== END 2021-09-15 17:33 | disposition home or self-care (01) ==
LOC: ER 12:42
DX: G51.0 Bell's palsy (principal); R07.89 Other chest pain; R51.9 Headache, unspecified; E11.9 Type 2 diabetes mellitus without complications; E78.5 Hyperlipidemia, unspecified; I10 Essential (primary) hypertension; Z90.710 Acquired absence of both cervix and uterus
CPT/HCPCS: 36415; 70450; 71045; 80053; 83735; 83880; 84443; 84484; 85025; 85610; 85730; 93005; 96372; 99285; J2930

== ENCOUNTER 2023-03-23 01:26 | Inpatient (IN) | payer BC ==
[~2023-03-23] VITALS: Ht 165.1 cm; Wt 96.6 kg
[~2023-03-23 01:26] MED LIST changes: +PANT40TA2 PO; +PRED20TA2 PO
[2023-03-23] MEDS: METOCLOPRAMIDE HCL 5MG/ml INJ 2ml VIAL IV ONE (02:38)
[2023-03-23] MEDS: SODIUM CHLORIDE 0.9% 1,000 ML IV ONE (02:38)
[2023-03-23 02:44] LABS: Basophils # (auto) 0 10 ^3/uL (0-0.2); Basophils % (auto) 0.3 % (0.0-2.0); Chloride 100 mmol/L (98-107); Eosinophils # (auto) 0 10 ^3/uL (0-0.8); Eosinophils % (auto) 0.2 % (0.0-7.0); Hematocrit 43.4 % (36.0-46.0); Hemoglobin 14.6 g/dL (12.2-16.2); Lymphocytes # (auto) 1.7 10 ^3/uL (0.4-5.4); Lymphocytes % (auto) 9.8 % (10.0-50.0); Mean Corpuscular Hemoglobin 28.1 pg (28.0-32.0); Mean Corpuscular Hgb Conc. 33.6 g/dL (32.0-36.0); Mean Corpuscular Volume 83.7 fL (80.0-100.0); Monocytes # (auto) 0.6 10 ^3/uL (0-1.3); Monocytes % (auto) 3.7 % (0.0-12.0); Neutrophils # (auto) 14.9 10 ^3/uL (1.6-8.6); Red Blood Cells 5.18 10^6/uL (4.0-5.20); Red Cell Distribution Width 12.7 % (11.8-14.3); Sodium 132 mmol/L (136-145); White Blood Cell 17.3 10^3/uL (4.4-10.8)
[2023-03-23 02:45] LABS: Anion Gap 12 (5-15); Calcium 10.6 mg/dL (8.7-10.4); Carbon Dioxide 20 mmol/L (20-30)
[2023-03-23 02:50] LABS: BUN/Creatinine Ratio 13.3 (10.0-20.0); Blood Urea Nitrogen 14 mg/dL (9-23); Glucose 336 mg/dL (74-106); Lipase 47 U/L (12-53)
[2023-03-23 03:04] LABS: Urine Bacteria FEW /hpf (None Seen); Urine Blood TRACE /uL (Negative); Urine Clarity HAZY (Clear); Urine Protein, UAD 2+ (Negative); Urine Specific Gravity 1.019 (1.001-1.035); Urine Urobilinogen Normal (Negative); Urine WBC 40 /hpf (0 - 5)
[2023-03-23 03:05] LABS: Lactic Acid w/Reflex 4.5 mmol/L (0.4-2.0)
[2023-03-23 03:07] LABS: Urine Color Straw (Yellow)
[2023-03-23] MEDS: PIPERACILLIN-TAZOB 3.375GM 100 ML IV ONE (03:45)
[2023-03-23] MEDS: KETOROLAC TROMETH 30 MG/ML 1ML VIAL IV ONE (09:30)
[2023-03-23] MEDS ORDERED: ONDANSETRON HCL 4 MG/2 ML VIAL IV PRN (09:30)
[2023-03-23] MEDS: SODIUM CHLORIDE 0.9% 1,000 ML IV SCH (09:30)
[2023-03-23] MEDS ORDERED: DEXTROSE (50%) 50ML SYRG IV PRN (09:30)
[2023-03-23] MEDS: ENOXAPARIN SOD 40 MG/0.4 ML SYRINGE SC SCH (10:00)
[2023-03-23] MEDS: ASCORBIC ACID 1,000 MG TAB PO SCH (10:00)
[2023-03-23] MEDS: PANTOPRAZOLE 40 MG TAB PO SCH (10:00)
[2023-03-23] MEDS: MULTIPLE VITAMIN TAB PO SCH (10:00)
[2023-03-23 10:30] LABS: Triglycerides 309 mg/dL (< 150)
[2023-03-23 10:31] LABS: LDL Cholesterol 154 mg/dL (< 100)
[2023-03-23 10:32] LABS: Cholesterol 250 mg/dL (< 200); HDL Cholesterol 45 mg/dL (40-59)
[2023-03-23] MEDS: InsuLIN REG 1unit/0.01ml Soln (100units/ml) SC SCH (11:30)
[2023-03-23] MEDS: ACCU-CHEK COMFORT CURVE STRIP VI SCH (11:30)
[2023-03-23] MEDS: PIPERACILLIN-TAZOB 3.375GM 100 ML IV SCH (14:15)
[2023-03-23] MEDS: KETOROLAC TROMETH 30 MG/ML 1ML VIAL IV PRN (16:46)
[2023-03-23 16:57] VITALS: PULSE 84; RESP 14; O2SAT 98
[2023-03-23 16:59] VITALS: BP_SYST 120; BP_SYST 70; BP_DIAS 70; PULSE 84; RESP 14; TEMP 98; O2SAT 98
[2023-03-23 17:00] VITALS: BP 126/76; PULSE 82; RESP 14; TEMP 98; O2SAT 98
[2023-03-23 20:00] VITALS: RESP 20
[2023-03-23 22:00] VITALS: BP 155/72; PULSE 98; RESP 22; TEMP 100.2; O2SAT 99
[2023-03-23] MEDS: ACETAMINOPHEN 325 MG TAB PO PRN (22:25)
[2023-03-24] VITALS (7 sets, daily range): BP systolic 118–163; BP diastolic 64–81; PULSE 66–110; RESP 12–22; TEMP 98.4–103; O2SAT 95–100
[2023-03-24 06:48] LABS: Basophils # (auto) 0 10 ^3/uL (0-0.2); Basophils % (auto) 0.4 % (0.0-2.0); Eosinophils # (auto) 0 10 ^3/uL (0-0.8); Eosinophils % (auto) 0.5 % (0.0-7.0); Hematocrit 41.5 % (36.0-46.0); Hemoglobin 13.8 g/dL (12.2-16.2); Lymphocytes # (auto) 1.4 10 ^3/uL (0.4-5.4); Lymphocytes % (auto) 16.7 % (10.0-50.0); Mean Corpuscular Hemoglobin 28.5 pg (28.0-32.0); Mean Corpuscular Hgb Conc. 33.4 g/dL (32.0-36.0); Mean Corpuscular Volume 85.3 fL (80.0-100.0); Monocytes # (auto) 0.5 10 ^3/uL (0-1.3); Monocytes % (auto) 5.8 % (0.0-12.0); Neutrophils # (auto) 6.4 10 ^3/uL (1.6-8.6); Neutrophils % (auto) 76.6 % (37.0-80.0); Nucleated Red Blood Cells % 0.1 %; Red Blood Cells 4.86 10^6/uL (4.0-5.20); Red Cell Distribution Width 12.7 % (11.8-14.3); White Blood Cell 8.4 10^3/uL (4.4-10.8)
[2023-03-24 07:07] LABS: Alanine Aminotransferase 45 U/L (7-40); Albumin 4.4 g/dL (3.2-4.8); Alkaline Phosphatase 107 U/L (46-116); Anion Gap 7 (5-15); Aspartate Aminotransferase 21 U/L (13-40); Bilirubin, Total 0.8 mg/dL (0.2-1.0); Blood Urea Nitrogen 10 mg/dL (9-23); Calcium 9.4 mg/dL (8.7-10.4); Carbon Dioxide 27 mmol/L (20-30); Chloride 101 mmol/L (98-107); Potassium 3.9 mmol/L (3.5-5.1); Sodium 135 mmol/L (136-145)
[2023-03-24 07:08] LABS: Glucose 228 mg/dL (74-106)
[2023-03-24] MEDS: INSULIN LANTUS (GLARGINE) 1 /0.01ml (100units/ml) SC ONE (15:58)
[2023-03-25] VITALS (7 sets, daily range): BP systolic 128–148; BP diastolic 60–81; PULSE 59–92; RESP 17–19; TEMP 97.5–99.6; O2SAT 93–98
[2023-03-25 06:00] LABS: Basophils # (auto) 0 10 ^3/uL (0-0.2); Basophils % (auto) 0.5 % (0.0-2.0); Eosinophils # (auto) 0 10 ^3/uL (0-0.8); Hematocrit 39.2 % (36.0-46.0); Hemoglobin 13.4 g/dL (12.2-16.2); Lymphocytes # (auto) 1.5 10 ^3/uL (0.4-5.4); Lymphocytes % (auto) 25.2 % (10.0-50.0); Mean Corpuscular Hemoglobin 28.6 pg (28.0-32.0); Mean Corpuscular Hgb Conc. 34.2 g/dL (32.0-36.0); Mean Corpuscular Volume 83.8 fL (80.0-100.0); Monocytes # (auto) 0.6 10 ^3/uL (0-1.3); Monocytes % (auto) 9.8 % (0.0-12.0); Neutrophils % (auto) 64.5 % (37.0-80.0); Red Blood Cells 4.68 10^6/uL (4.0-5.20); Red Cell Distribution Width 12.5 % (11.8-14.3); White Blood Cell 6.1 10^3/uL (4.4-10.8)
[2023-03-25] MEDS: INSULIN LANTUS (GLARGINE) 1 /0.01ml (100units/ml) SC SCH (06:16)
[2023-03-25 09:24] LABS: Hepatitis B Surface Antigen Negative (Negative)
[2023-03-25 09:45] LABS: Hepatitis C Antibody Negative (Negative)
[2023-03-25] MEDS ORDERED: DEXTROSE (50%) 50ML SYRG IV PRN (09:45)
[2023-03-25 09:54] LABS: Chloride 104 mmol/L (98-107); Potassium 3.4 mmol/L (3.5-5.1); Sodium 135 mmol/L (136-145)
[2023-03-25 09:55] LABS: Anion Gap 6 (5-15); Calcium 9.3 mg/dL (8.5-10.1); Carbon Dioxide 25 mmol/L (20-30)
[2023-03-25 10:00] LABS: BUN/Creatinine Ratio 8.2 (10.0-20.0); Blood Urea Nitrogen 6 mg/dL (9-23); Glucose 225 mg/dL (74-106)
[2023-03-25] MEDS: POTASSIUM CHL 20 Meq TABLET PO ONE (11:12)
[2023-03-25] MEDS: ACCU-CHEK COMFORT CURVE STRIP VI SCH (12:05)
[2023-03-25] MEDS: INSULIN LANTUS (GLARGINE) 1 /0.01ml (100units/ml) SC ONE (12:38)
[2023-03-25] MEDS: InsuLIN REG 1unit/0.01ml Soln (100units/ml) SC SCH ×2 (12:39→22:22)
[2023-03-25] MEDS: cefTRIAXone 1GM/50ML D5W 50 ML IV ONE (17:45)
[2023-03-25] MEDS: ATORVASTATIN 20 MG TAB PO SCH (22:09)
[2023-03-26 05:07] VITALS: BP 124/82; PULSE 80; RESP 18; TEMP 97.6; O2SAT 98
[2023-03-26] MEDS: INSULIN LANTUS (GLARGINE) 1 /0.01ml (100units/ml) SC SCH (06:28)
[2023-03-26 06:31] LABS: Alanine Aminotransferase 64 U/L (7-40); Alkaline Phosphatase 130 U/L (46-116); Anion Gap 5 (5-15); Aspartate Aminotransferase 43 U/L (13-40); Blood Urea Nitrogen 9 mg/dL (9-23); Calcium 9.1 mg/dL (8.7-10.4); Carbon Dioxide 27 mmol/L (20-30); Chloride 104 mmol/L (98-107); Glucose 186 mg/dL (74-106); Magnesium 1.8 mg/dL (1.6-2.6); Potassium 3.8 mmol/L (3.5-5.1); Sodium 136 mmol/L (136-145)
[2023-03-26 06:33] LABS: Bilirubin, Total 0.4 mg/dL (0.2-1.0); Total Protein 6.4 g/dL (5.7-8.2)
[2023-03-26 06:43] LABS: Basophils # (auto) 0 10 ^3/uL (0-0.2); Basophils % (auto) 0.5 % (0.0-2.0); Eosinophils # (auto) 0.1 10 ^3/uL (0-0.8); Eosinophils % (auto) 1.3 % (0.0-7.0); Hematocrit 40.8 % (36.0-46.0); Hemoglobin 13.5 g/dL (12.2-16.2); Lymphocytes # (auto) 2.6 10 ^3/uL (0.4-5.4); Lymphocytes % (auto) 36.5 % (10.0-50.0); Mean Corpuscular Hemoglobin 27.9 pg (28.0-32.0); Mean Corpuscular Volume 84.6 fL (80.0-100.0); Monocytes % (auto) 14.8 % (0.0-12.0); Neutrophils # (auto) 3.3 10 ^3/uL (1.6-8.6); Neutrophils % (auto) 46.9 % (37.0-80.0); Nucleated Red Blood Cells % 0.1 %; Red Blood Cells 4.82 10^6/uL (4.0-5.20); Red Cell Distribution Width 12.6 % (11.8-14.3)
[2023-03-26 07:09] LABS: CRP High Sensitivity 7.49 mg/dL (<1.0)
[2023-03-26 09:00] VITALS: BP 101/63; PULSE 70; RESP 18; TEMP 98.1; O2SAT 99
[2023-03-26] MEDS: cefTRIAXone 1GM/50ML D5W 50 ML IV SCH (09:21)
[2023-03-26] MEDS ORDERED: CEFP200T15 PO (10:00)
[2023-03-26] MEDS: CEFPODOXIME PROXETIL 200 MG TAB PO SCH (11:19)
[2023-03-26 11:32] VITALS: BP 101/63; PULSE 70; RESP 18; TEMP 98.1; O2SAT 99
== END 2023-03-26 12:42 | disposition home or self-care (01) | DRG 872 ==
LOC: ER 01:26 → OVERFLOW 09:20 → WEST WING 17:06
PROVIDERS: ADMIT Internal Medicine Geriatric Medicine; ATTEND Internal Medicine Geriatric Medicine
DX: A41.9 Sepsis, unspecified organism (principal); N10 Acute pyelonephritis; E87.1 Hypo-osmolality and hyponatremia; E11.65 Type 2 diabetes mellitus with hyperglycemia; E78.5 Hyperlipidemia, unspecified; I10 Essential (primary) hypertension; B96.20 Unspecified Escherichia coli [E. coli] as the cause of diseases classified elsewhere; E86.1 Hypovolemia; E83.52 Hypercalcemia; E78.2 Mixed hyperlipidemia; E87.6 Hypokalemia; Z87.442 Personal history of urinary calculi; Z90.710 Acquired absence of both cervix and uterus
CPT/HCPCS: 36415; 71045; 74176; 80048; 80053; 80061; 81001; 82010; 82962; 83036; 83605; 83690; 83735; 84132; 84484; 85025; 86141; 86803; 87040; 87086; 87088; 87186; 87340; 93005; 96361; 96374; 96375; G0378; J1815; J1885; J2543

== ENCOUNTER 2023-06-19 08:15 | Inpatient (IN) | payer BC ==
[~2023-06-19] VITALS: Ht 165.1 cm; Wt 96.2 kg
[2023-06-19] MEDS: InsuLIN REG 1unit/0.01ml Soln (100units/ml) SC SCH ×2 (06:08→21:27)
[~2023-06-19 08:15] MED LIST changes: -ACE3T PO; -ASPI325T4 PO; +ASPI325T6 PO; +CEFP200T15 PO; -ELDE1SYP PO; -IBUP200C14 PO; -PANT40TA2 PO; -PENI500T2 PO; -POM PO; -PRED20TA2 PO
[2023-06-19 09:56] LABS: Urine Bacteria None Seen /hpf (None Seen)
[2023-06-19 10:10] LABS: Basophils # (auto) 0.1 10 ^3/uL (0-0.2); Basophils % (auto) 0.5 % (0.0-2.0); Eosinophils # (auto) 0.1 10 ^3/uL (0-0.8); Eosinophils % (auto) 1.2 % (0.0-7.0); Hematocrit 40.4 % (36.0-46.0); Hemoglobin 13.5 g/dL (12.2-16.2); Lymphocytes # (auto) 2.4 10 ^3/uL (0.4-5.4); Lymphocytes % (auto) 24.5 % (10.0-50.0); Mean Corpuscular Hemoglobin 28.6 pg (28.0-32.0); Mean Corpuscular Hgb Conc. 33.3 g/dL (32.0-36.0); Monocytes # (auto) 0.6 10 ^3/uL (0-1.3); Neutrophils # (auto) 6.6 10 ^3/uL (1.6-8.6); Neutrophils % (auto) 67.8 % (37.0-80.0); Red Cell Distribution Width 13.2 % (11.8-14.3); White Blood Cell 9.7 10^3/uL (4.4-10.8)
[2023-06-19 10:23] LABS: Urine Blood TRACE /uL (Negative); Urine Clarity Turbid (Clear); Urine Color Yellow (Yellow); Urine Hyaline Cast FEW /lpf (0 - 2); Urine Mucus FEW (None Seen); Urine Protein, UAD 1+ (Negative); Urine Specific Gravity 1.024 (1.001-1.035); Urine Urobilinogen Normal (Negative); Urine WBC 105 /hpf (0 - 5)
[2023-06-19 10:34] LABS: Alanine Aminotransferase 58 U/L (7-40); Albumin 4.7 g/dL (3.2-4.8); Alkaline Phosphatase 147 U/L (46-116); Anion Gap 9 (5-15); Aspartate Aminotransferase 28 U/L (13-40); BUN/Creatinine Ratio 10.9 (10.0-20.0); Blood Urea Nitrogen 13 mg/dL (9-23); Calcium 10.4 mg/dL (8.5-10.1); Carbon Dioxide 25 mmol/L (20-30); Chloride 95 mmol/L (98-107); Magnesium 1.5 mg/dL (1.6-2.6); Potassium 4.3 mmol/L (3.5-5.1); Sodium 129 mmol/L (136-145)
[2023-06-19 10:35] LABS: Bilirubin, Total 0.6 mg/dL (0.2-1.0); Total Protein 7.6 g/dL (5.7-8.2)
[2023-06-19 10:41] LABS: Glucose 586 mg/dL (74-106)
[2023-06-19] MEDS: SODIUM CHLORIDE 0.9% 1,000 ML IVB ONE (11:16)
[2023-06-19 12:39] LABS: Lipase 48 U/L (12-53)
[2023-06-19] MEDS: InsuLIN REG 1unit/0.01ml Soln (100units/ml) IV ONE (12:45)
[2023-06-19] MEDS ORDERED: NITROGLYCERIN 0.4 MG SL TAB SL PRN (13:45)
[2023-06-19] MEDS ORDERED: MORPHINE SULFATE INJ 2 MG/ml SYRG IV PRN ×2 (13:45)
[2023-06-19] MEDS ORDERED: DEXTROSE (50%) 50ML SYRG IV PRN (13:45)
[2023-06-19] MEDS ORDERED: ONDANSETRON HCL 4 MG/2 ML VIAL IV PRN (13:45)
[2023-06-19] MEDS ORDERED: LOSA-535 PO (14:36)
[2023-06-19] MEDS: SODIUM CHLORIDE 0.9% 1,000 ML IV SCH (17:45)
[2023-06-19] MEDS: ERTAPENEM SOD INJ 1 GM in SODIUM CHL 0.9% 50 ML IV ONE (18:28)
[2023-06-19] MEDS: ACCU-CHEK COMFORT CURVE STRIP VI SCH (21:24)
[2023-06-19] MEDS: PRAVASTATIN SODIUM 20 MG TAB PO SCH (22:00)
[2023-06-20] VITALS (8 sets, daily range): BP systolic 116–155; BP diastolic 69–95; PULSE 62–85; RESP 16–20; TEMP 97.6–98.5; O2SAT 0–100
[2023-06-20] MEDS ORDERED: INSU100I54 SC (02:06)
[2023-06-20] MEDS ORDERED: INSU1INJ19 SC (02:06)
[2023-06-20] MEDS ORDERED: CIPR500T4 PO (02:37)
[2023-06-20] MEDS ORDERED: METF-371 PO (02:37)
[2023-06-20] MEDS ORDERED: PANT40T PO (02:37)
[2023-06-20 07:43] LABS: Basophils # (auto) 0.1 10 ^3/uL (0-0.2); Basophils % (auto) 0.8 % (0.0-2.0); Eosinophils # (auto) 0.2 10 ^3/uL (0-0.8); Hemoglobin 11.9 g/dL (12.2-16.2); Lymphocytes % (auto) 36.6 % (10.0-50.0); Mean Corpuscular Hemoglobin 28.1 pg (28.0-32.0); Mean Corpuscular Hgb Conc. 33.1 g/dL (32.0-36.0); Mean Corpuscular Volume 84.8 fL (80.0-100.0); Monocytes # (auto) 0.7 10 ^3/uL (0-1.3); Neutrophils # (auto) 4.4 10 ^3/uL (1.6-8.6); Neutrophils % (auto) 52.6 % (37.0-80.0); Nucleated Red Blood Cells % 0.1 %; Red Blood Cells 4.25 10^6/uL (4.0-5.20); Red Cell Distribution Width 12.9 % (11.8-14.3); White Blood Cell 8.3 10^3/uL (4.4-10.8)
[2023-06-20 08:07] LABS: Alanine Aminotransferase 54 U/L (7-40); Albumin 4.4 g/dL (3.2-4.8); Alkaline Phosphatase 109 U/L (46-116); Anion Gap 6 (5-15); Aspartate Aminotransferase 30 U/L (13-40); BUN/Creatinine Ratio 14.9 (10.0-20.0); Bilirubin, Total 0.6 mg/dL (0.2-1.0); Blood Urea Nitrogen 11 mg/dL (9-23); Calcium 9.9 mg/dL (8.5-10.1); Carbon Dioxide 28 mmol/L (20-30); Chloride 104 mmol/L (98-107); Glucose 208 mg/dL (74-106); Potassium 3.8 mmol/L (3.5-5.1); Sodium 138 mmol/L (136-145)
[2023-06-20 08:51] LABS: Magnesium 1.7 mg/dL (1.6-2.6)
[2023-06-20 08:59] LABS: Creatinine, Urine 115.55 mg/dL (30.0-125.0)
[2023-06-20 09:01] LABS: CRP High Sensitivity 2.76 mg/dL (<1.0)
[2023-06-20 09:46] LABS: INR 1.05 (0.9-1.15); Partial Thromboplastin Time 27.5 SEC (24.5-34.5); Prothrombin Time 11.1 sec (9.3-11.8)
[2023-06-20] MEDS: POTASSIUM EFFERVESENT TAB 25 MEQ PO ONE (09:48)
[2023-06-20] MEDS: LOSARTAN POTASSIUM 50 MG TAB PO SCH (09:49)
[2023-06-20] MEDS: PANTOPRAZOLE 40 MG TAB PO SCH (09:50)
[2023-06-20] MEDS: HYDROcodone-ACET 5/325MG TAB PO PRN (09:50)
[2023-06-20] MEDS: DOCUSATE SOD 100 MG CAP PO PRN (09:50)
[2023-06-20] MEDS: INSULIN LANTUS (GLARGINE) 1 /0.01ml (100units/ml) SC SCH (10:15)
[2023-06-20] MEDS: ERTAPENEM SOD INJ 1 GM in SODIUM CHL 0.9% 50 ML IV SCH (13:01)
[2023-06-20] MEDS: MAGNESIUM SULFATE 1GM/100ML 100 ML IV ONE (13:12)
[2023-06-20] MEDS: SODIUM CHLORIDE 0.9% 1,000 ML IV ONE (13:13)
[2023-06-20] MEDS: ACETAMINOPHEN 325 MG TAB PO PRN (21:34)
[2023-06-21] VITALS (8 sets, daily range): BP systolic 101–145; BP diastolic 58–78; PULSE 61–100; RESP 16–20; TEMP 97.4–98.6; O2SAT 94–100
[2023-06-21 06:46] LABS: Basophils # (auto) 0 10 ^3/uL (0-0.2); Basophils % (auto) 0.6 % (0.0-2.0); Eosinophils # (auto) 0.2 10 ^3/uL (0-0.8); Eosinophils % (auto) 2.2 % (0.0-7.0); Hematocrit 36.4 % (36.0-46.0); Hemoglobin 12.2 g/dL (12.2-16.2); Lymphocytes # (auto) 3.1 10 ^3/uL (0.4-5.4); Lymphocytes % (auto) 41.6 % (10.0-50.0); Mean Corpuscular Hemoglobin 28.5 pg (28.0-32.0); Mean Corpuscular Hgb Conc. 33.4 g/dL (32.0-36.0); Mean Corpuscular Volume 85.3 fL (80.0-100.0); Monocytes # (auto) 0.6 10 ^3/uL (0-1.3); Neutrophils # (auto) 3.6 10 ^3/uL (1.6-8.6); Neutrophils % (auto) 47.6 % (37.0-80.0); Nucleated Red Blood Cells % 0.1 %; Red Blood Cells 4.27 10^6/uL (4.0-5.20); White Blood Cell 7.5 10^3/uL (4.4-10.8)
[2023-06-21 07:05] LABS: Alanine Aminotransferase 58 U/L (7-40); Albumin 4.3 g/dL (3.2-4.8); Alkaline Phosphatase 100 U/L (46-116); Anion Gap 7 (5-15); Aspartate Aminotransferase 35 U/L (13-40); BUN/Creatinine Ratio 14.3 (10.0-20.0); Blood Urea Nitrogen 10 mg/dL (9-23); Calcium 10.3 mg/dL (8.5-10.1); Carbon Dioxide 28 mmol/L (20-30); Chloride 104 mmol/L (98-107); Glucose 175 mg/dL (74-106); Magnesium 1.8 mg/dL (1.6-2.6); Potassium 4.3 mmol/L (3.5-5.1); Sodium 139 mmol/L (136-145)
[2023-06-21 07:06] LABS: Bilirubin, Total 0.5 mg/dL (0.2-1.0)
[2023-06-21 07:14] LABS: CRP High Sensitivity 2.02 mg/dL (<1.0)
[2023-06-21] MEDS: INSULIN LANTUS (GLARGINE) 1 /0.01ml (100units/ml) SC SCH ×2 (09:41→21:22)
[2023-06-22 05:00] VITALS: BP 126/79; PULSE 64; RESP 17; TEMP 97.5; O2SAT 97
[2023-06-22 07:53] LABS: Alanine Aminotransferase 52 U/L (7-40); Albumin 4.4 g/dL (3.2-4.8); Alkaline Phosphatase 102 U/L (46-116); Anion Gap 7 (5-15); Aspartate Aminotransferase 25 U/L (13-40); BUN/Creatinine Ratio 15.3 (10.0-20.0); Bilirubin, Total 0.4 mg/dL (0.2-1.0); Blood Urea Nitrogen 11 mg/dL (9-23); Calcium 10.4 mg/dL (8.5-10.1); Carbon Dioxide 29 mmol/L (20-30); Chloride 103 mmol/L (98-107); Glucose 167 mg/dL (74-106); Sodium 139 mmol/L (136-145)
[2023-06-22 08:00] VITALS: BP 134/78; PULSE 100; PULSE 84; RESP 16; TEMP 97.4; O2SAT 100
[2023-06-22 09:00] VITALS: BP 134/78; PULSE 84; RESP 16; TEMP 97.4; O2SAT 100
[2023-06-22] MEDS ORDERED: CIPR500T4 PO (11:13)
[2023-06-22] MEDS ORDERED: INSU1INJ19 SC (11:13)
[2023-06-22 12:06] VITALS: BP 134/78; PULSE 84; RESP 16; TEMP 36.3; O2SAT 100
[2023-06-27 20:05] LABS: Vitamin D 25-Hydroxy 30 ng/mL (.); Vitamin D-2 25-Hydroxy <1.0 ng/mL (.); Vitamin D-3 25-Hydroxy 30 ng/mL (.)
== END 2023-06-22 13:00 | disposition home or self-care (01) | DRG 637 ==
LOC: ER 08:15 → TELE 13:42 → TELE-WESTW 22:22 → WEST WING 06-21 00:13
PROVIDERS: ADMIT Internal Medicine; ATTEND Internal Medicine
DX: E11.00 Type 2 diabetes mellitus with hyperosmolarity without nonketotic hyperglycemic-hyperosmolar coma (NKHHC) (principal); N17.0 Acute kidney failure with tubular necrosis; E87.1 Hypo-osmolality and hyponatremia; N10 Acute pyelonephritis; I10 Essential (primary) hypertension; E78.2 Mixed hyperlipidemia; K76.0 Fatty (change of) liver, not elsewhere classified; R91.8 Other nonspecific abnormal finding of lung field; E83.42 Hypomagnesemia; K21.9 Gastro-esophageal reflux disease without esophagitis; Z79.4 Long term (current) use of insulin; Z87.442 Personal history of urinary calculi; Z90.710 Acquired absence of both cervix and uterus
CPT/HCPCS: 36415; 71046; 74177; 80053; 80061; 81001; 82010; 82306; 82550; 82570; 82962; 83036; 83605; 83690; 83735; 84300; 84443; 85025; 85610; 85730; 86141; 87086; G0378; J1335; J1815

== ENCOUNTER 2023-11-07 14:37 | Inpatient (IN) | payer BC ==
[~2023-11-07] VITALS: Ht 154.9 cm; Wt 86.1 kg
[~2023-11-07 14:37] MED LIST changes: -ASCO100076 PO; -ASPI325T6 PO; -CEFP200T15 PO; +CIPR500T4 PO; +INSU100I54 SC; +INSU1INJ19 SC; +LOSA-535 PO; +METF-371 PO; -MULTTAB48 PO; -OMEG306C PO; +PANT40T PO
[2023-11-07 15:14] LABS: Basophils # (auto) 0 10 ^3/uL (0-0.2); Basophils % (auto) 0.5 % (0.0-2.0); Eosinophils # (auto) 0.1 10 ^3/uL (0-0.8); Eosinophils % (auto) 1.4 % (0.0-7.0); Hematocrit 39.5 % (36.0-46.0); Hemoglobin 13.4 g/dL (12.2-16.2); Lymphocytes # (auto) 2.3 10 ^3/uL (0.4-5.4); Lymphocytes % (auto) 37.7 % (10.0-50.0); Mean Corpuscular Hemoglobin 29.4 pg (28.0-32.0); Mean Corpuscular Volume 86.4 fL (80.0-100.0); Monocytes # (auto) 0.4 10 ^3/uL (0-1.3); Monocytes % (auto) 6.6 % (0.0-12.0); Neutrophils # (auto) 3.3 10 ^3/uL (1.6-8.6); Neutrophils % (auto) 53.8 % (37.0-80.0); Platelet Count (auto) 171 10^3/uL (140-450); Red Blood Cells 4.57 10^6/uL (4.0-5.20); Red Cell Distribution Width 12.4 % (11.8-14.3); White Blood Cell 6.2 10^3/uL (4.4-10.8)
[2023-11-07 15:32] LABS: Anion Gap 7 (5-15); Carbon Dioxide 27 mmol/L (20-31); Chloride 96 mmol/L (98-107); Potassium 4.7 mmol/L (3.5-5.1); Sodium 130 mmol/L (136-145)
[2023-11-07 15:33] LABS: Calcium 10.2 mg/dL (8.7-10.4)
[2023-11-07 15:38] LABS: BUN/Creatinine Ratio 13.7 (10.0-20.0); Blood Urea Nitrogen 16 mg/dL (9-23)
[2023-11-07 15:40] LABS: Glucose 631 mg/dL (74-106)
[2023-11-07] MEDS: NITROGLYCERIN 0.4 MG SL TAB SL ONE (20:25)
[2023-11-07] MEDS: ASPirin 325 MG TAB PO ONE (20:25)
[2023-11-07 20:31] VITALS: PULSE 120; RESP 18; O2SAT 98
[2023-11-07] MEDS ORDERED: NITROGLYCERIN 0.4 MG SL TAB SL PRN (22:45)
[2023-11-07] MEDS ORDERED: DEXTROSE (50%) 50ML SYRG IV PRN (23:00)
[2023-11-07 23:33] LABS: INR 0.98 (0.9-1.15); Partial Thromboplastin Time 25.8 SEC (24.5-34.5); Prothrombin Time 10.4 sec (9.3-11.8)
[2023-11-07] MEDS: InsuLIN REG 1unit/0.01ml Soln (100units/ml) SC SCH (23:54)
[2023-11-07] MEDS: LOSARTAN POTASSIUM 50 MG TAB PO ONE (23:56)
[2023-11-07] MEDS: ACCU-CHEK COMFORT CURVE STRIP VI SCH (23:57)
[2023-11-08] VITALS (9 sets, daily range): BP systolic 114–146; BP diastolic 75–89; PULSE 67–82; RESP 14–19; TEMP 97.9–98.2; O2SAT 98–100
[2023-11-08 02:05] LABS: Free T3 2.79 pg/mL (2.3-4.2); Free T4 (Free Thyroxine) 1.02 ng/dL (0.89-1.76)
[2023-11-08 03:04] LABS: Basophils # (auto) 0.1 10 ^3/uL (0-0.2); Basophils % (auto) 0.7 % (0.0-2.0); Eosinophils # (auto) 0.2 10 ^3/uL (0-0.8); Eosinophils % (auto) 2.2 % (0.0-7.0); Hematocrit 41.9 % (36.0-46.0); Hemoglobin 14.3 g/dL (12.2-16.2); Lymphocytes # (auto) 3.9 10 ^3/uL (0.4-5.4); Lymphocytes % (auto) 52.2 % (10.0-50.0); Mean Corpuscular Volume 85.3 fL (80.0-100.0); Monocytes # (auto) 0.5 10 ^3/uL (0-1.3); Monocytes % (auto) 6.7 % (0.0-12.0); Neutrophils # (auto) 2.9 10 ^3/uL (1.6-8.6); Neutrophils % (auto) 38.2 % (37.0-80.0); Nucleated Red Blood Cells % 0.1 %; Platelet Count (auto) 189 10^3/uL (140-450); Red Blood Cells 4.92 10^6/uL (4.0-5.20); Red Cell Distribution Width 12.7 % (11.8-14.3); White Blood Cell 7.5 10^3/uL (4.4-10.8)
[2023-11-08 03:25] LABS: Chloride 101 mmol/L (98-107); Potassium 3.9 mmol/L (3.5-5.1); Sodium 134 mmol/L (136-145)
[2023-11-08 03:26] LABS: Anion Gap 6 (5-15); Calcium 10.9 mg/dL (8.7-10.4); Carbon Dioxide 27 mmol/L (20-31)
[2023-11-08 03:31] LABS: Blood Urea Nitrogen 12 mg/dL (9-23); Glucose 282 mg/dL (74-106)
[2023-11-08] MEDS: INSULIN LANTUS (GLARGINE) 1 /0.01ml (100units/ml) SC SCH (07:00)
[2023-11-08] MEDS: SODIUM CHLORIDE 0.9% 1,000 ML IV SCH (09:00)
[2023-11-08] MEDS: LOSARTAN POTASSIUM 50 MG TAB PO SCH (11:33)
[2023-11-08] MEDS: MORPHINE SULFATE INJ 2 MG/ml SYRG IV PRN (12:56)
[2023-11-08] MEDS: ASPirin 81 mg TAB PO ONE (13:02)
[2023-11-08] MEDS ORDERED: TAMS0.4C39 PO (15:24)
[2023-11-08] MEDS ORDERED: PRAV20TA3 PO (15:24)
[2023-11-08] MEDS ORDERED: INSU1INJ19 SC (15:24)
[2023-11-08] MEDS: IODIXANOL 320MG/ML 100ML BTL IV ONE (15:36)
[2023-11-08] MEDS: ANGIOMAX 250 MG VIAL IV ONE ×2 (15:40→16:57)
[2023-11-08] MEDS: SODIUM CHL 0.9% 50 ML ONE ×2 (15:41→16:57)
[2023-11-08] MEDS: fentaNYL CITRATE 100 MCG/2 ML VL ONE (15:41)
[2023-11-08] MEDS: MIDAZOLAM HCL 2MG/2ML 2ml VIAL (1mg/ml) ONE (15:41)
[2023-11-08] MEDS: HEPARIN SODIUM (PORCINE) 5000 UNITS/ML 1ML VIAL ONE (15:41)
[2023-11-08] MEDS: VERAPAMIL 2.5MG/ML INJ 2ML VIAL IV ONE (15:42)
[2023-11-08] MEDS: LIDOCAINE 2%HCL (LOCAL ANESTH.) INJ 20ML MDV ONE (15:42)
[2023-11-08] MEDS: ASPirin 325 MG TAB ONE (17:28)
[2023-11-08] MEDS: TICAGRELOR 90 MG TAB ONE (17:28)
[2023-11-08] MEDS ORDERED: SOD CHL 0.45% 1,000 ML IV SCH (18:00)
[2023-11-08] MEDS: SOD CHL 0.45% 1,000 ML IV SCH (18:15)
[2023-11-08 21:19] LABS: COVID19 ANTIGEN SOFIA FIA NEGATIVE (NEGATIVE)
[2023-11-08] MEDS: ATORVASTATIN 20 MG TAB PO SCH (21:26)
[2023-11-08] MEDS: TICAGRELOR 90 MG TAB PO SCH (21:26)
[2023-11-08] MEDS: CARVEDILOL 3.125 MG TAB PO SCH (21:28)
[2023-11-08 22:44] LABS: Urine Bacteria FEW /hpf (None Seen); Urine Blood Negative /uL (Negative); Urine Clarity Clear (Clear); Urine Color Light-Yellow (Yellow); Urine Mucus FEW (None Seen); Urine Protein, UAD TRACE (Negative); Urine Urobilinogen Normal (Negative); Urine WBC <1 /hpf (0 - 5)
[2023-11-08 22:49] LABS: Urine Specific Gravity > 1.050 (1.001-1.035)
[2023-11-09] VITALS (8 sets, daily range): BP systolic 112–175; BP diastolic 50–81; PULSE 63–82; RESP 17–19; TEMP 97.6–98.7; O2SAT 97–100
[2023-11-09] MEDS: cloNIDine HCL 0.1 MG TAB PO PRN (00:18)
[2023-11-09 07:09] LABS: Basophils # (auto) 0 10 ^3/uL (0-0.2); Basophils % (auto) 0.6 % (0.0-2.0); Eosinophils # (auto) 0.2 10 ^3/uL (0-0.8); Eosinophils % (auto) 2.2 % (0.0-7.0); Hematocrit 36.4 % (36.0-46.0); Hemoglobin 12.6 g/dL (12.2-16.2); Lymphocytes # (auto) 2.2 10 ^3/uL (0.4-5.4); Lymphocytes % (auto) 30.9 % (10.0-50.0); Mean Corpuscular Hemoglobin 29.8 pg (28.0-32.0); Mean Corpuscular Hgb Conc. 34.8 g/dL (32.0-36.0); Mean Corpuscular Volume 85.7 fL (80.0-100.0); Monocytes # (auto) 0.5 10 ^3/uL (0-1.3); Monocytes % (auto) 7.8 % (0.0-12.0); Neutrophils # (auto) 4.1 10 ^3/uL (1.6-8.6); Neutrophils % (auto) 58.5 % (37.0-80.0); Platelet Count (auto) 160 10^3/uL (140-450); Red Blood Cells 4.24 10^6/uL (4.0-5.20); Red Cell Distribution Width 12.7 % (11.8-14.3)
[2023-11-09 07:34] LABS: Alanine Aminotransferase 77 U/L (7-40); Alkaline Phosphatase 90 U/L (46-116); Calcium 9.6 mg/dL (8.7-10.4)
[2023-11-09 07:35] LABS: Anion Gap 6 (5-15); Aspartate Aminotransferase 61 U/L (13-40); BUN/Creatinine Ratio 15.5 (10.0-20.0); Bilirubin, Total 0.7 mg/dL (0.2-1.0); Blood Urea Nitrogen 11 mg/dL (9-23); Carbon Dioxide 28 mmol/L (20-31); Chloride 105 mmol/L (98-107); Glucose 186 mg/dL (74-106); Sodium 139 mmol/L (136-145); Total Protein 6.1 g/dL (5.7-8.2)
[2023-11-09] MEDS: ASPirin 81 mg TAB PO SCH (10:05)
[2023-11-09] MEDS: ACCU-CHEK COMFORT CURVE STRIP VI SCH (11:51)
[2023-11-09] MEDS: InsuLIN REG 1unit/0.01ml Soln (100units/ml) SC SCH (12:06)
[2023-11-09] MEDS: ACETAMINOPHEN 500 MG TAB PO PRN (21:46)
[2023-11-10] VITALS (8 sets, daily range): BP systolic 120–145; BP diastolic 73–86; PULSE 60–72; RESP 18–20; TEMP 96.8–99; O2SAT 96–99
[2023-11-10 07:43] LABS: Alanine Aminotransferase 69 U/L (7-40); Albumin 4.2 g/dL (3.2-4.8); Alkaline Phosphatase 101 U/L (46-116); Anion Gap 8 (5-15); Aspartate Aminotransferase 39 U/L (13-40); BUN/Creatinine Ratio 15.1 (10.0-20.0); Blood Urea Nitrogen 11 mg/dL (9-23); Calcium 10.1 mg/dL (8.7-10.4); Carbon Dioxide 26 mmol/L (20-31); Chloride 107 mmol/L (98-107); Glucose 178 mg/dL (74-106); Potassium 4.1 mmol/L (3.5-5.1); Sodium 141 mmol/L (136-145)
[2023-11-10 07:44] LABS: Bilirubin, Total 0.7 mg/dL (0.2-1.0); Total Protein 6.5 g/dL (5.7-8.2)
[2023-11-10 18:06] LABS: Chloride 105 mmol/L (98-107); Potassium 3.9 mmol/L (3.5-5.1); Sodium 137 mmol/L (136-145)
[2023-11-10 18:07] LABS: Anion Gap 9 (5-15); Carbon Dioxide 23 mmol/L (20-31)
[2023-11-10 18:12] LABS: Blood Urea Nitrogen 15 mg/dL (9-23); Glucose 216 mg/dL (74-106)
[2023-11-11] VITALS (7 sets, daily range): BP systolic 124–149; BP diastolic 71–92; PULSE 56–68; RESP 17–20; TEMP 36.6; O2SAT 96–99
[2023-11-11] MEDS ORDERED: TICA90TA PO (13:19)
[2023-11-11] MEDS ORDERED: CARV-214 PO (13:19)
[2023-11-11] MEDS ORDERED: ASPI-325 PO (13:19)
== END 2023-11-11 15:03 | disposition home or self-care (01) | DRG 321 ==
LOC: ER 14:37 → TELE 22:44 → TELE-EAST 11-08 18:41
PROVIDERS: ADMIT Internal Medicine; ATTEND Internal Medicine
PROC: 0270366 Dilation of Coronary Artery, One Artery, Bifurcation, with Three Drug-eluting Intraluminal Devices, Percutaneous Approach (ICD-10-PCS; principal; 2023-11-08)
PROC: 4A023N7 Measurement of Cardiac Sampling and Pressure, Left Heart, Percutaneous Approach (ICD-10-PCS; 2023-11-08)
PROC: B211YZZ Fluoroscopy of Multiple Coronary Arteries using Other Contrast (ICD-10-PCS; 2023-11-08)
PROC: B215YZZ Fluoroscopy of Left Heart using Other Contrast (ICD-10-PCS; 2023-11-08)
PROC: B240ZZ3 Ultrasonography of Single Coronary Artery, Intravascular (ICD-10-PCS; 2023-11-08)
DX: I25.110 Atherosclerotic heart disease of native coronary artery with unstable angina pectoris (principal); N17.0 Acute kidney failure with tubular necrosis; E11.65 Type 2 diabetes mellitus with hyperglycemia; E66.9 Obesity, unspecified; E78.5 Hyperlipidemia, unspecified; Z20.822 Contact with and (suspected) exposure to COVID-19; I16.0 Hypertensive urgency; K21.9 Gastro-esophageal reflux disease without esophagitis; E55.9 Vitamin D deficiency, unspecified; E78.00 Pure hypercholesterolemia, unspecified; I25.5 Ischemic cardiomyopathy; Z79.4 Long term (current) use of insulin; Z90.710 Acquired absence of both cervix and uterus; Z83.3 Family history of diabetes mellitus; Z91.199 Patient's noncompliance with other medical treatment and regimen due to unspecified reason; Z68.35 Body mass index [BMI] 35.0-35.9, adult; Z87.442 Personal history of urinary calculi
CPT/HCPCS: 36415; 71045; 80048; 80053; 81001; 82040; 82043; 82306; 82607; 82962; 83036; 83880; 83930; 84439; 84443; 84481; 84484; 85025; 85610; 85730; 87426; 92928; 92978; 93005; 93017; 93306; 93458; 99152; 99291; C1874; G0378; J1815; J2250; Q9967

== ENCOUNTER 2024-04-08 15:16 | Inpatient (IN) | payer BC ==
[~2024-04-08] VITALS: Ht 165.1 cm; Wt 83.8 kg
[~2024-04-08 15:16] MED LIST changes: +ASPI-325 PO; +CARV-214 PO; -CIPR500T4 PO; +PRAV20TA3 PO; +TAMS0.4C39 PO; +TICA90TA PO
--- NOTE | 2024-04-08 15:49 | ECG ---
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
--- NOTE | 2024-04-08 15:50 | ED.PDOC ---
General HPI Comments HPI: Poor Historian. HPI: 53 year old female presents to the ED with chief complaint of urinary symptoms. Patient reports that she has been experiencing dysuria with associated urinary frequency, nausea, vomiting, and fatigue for the past 2 days. Patient's blood glucose in the ED reads 343. Patient states she did not take her Insulin today as normal. Patient denies any diarrhea, abdominal pain, fever, chills, dizziness, chest pain, or SOB. Initial Vital Signs: Temp : 98.2F BP: 97/73 HR: 126 RR: 18 SpO2: 96% Past Medical History: DM, Kidney Stones, HTN, HLD, UTI Past Surgical History: Hysterectomy Social History: Denies smoking, ETOH, or drug use. Medications: Insulin, Metformin Allergies: NKDA REVIEW OF SYSTEMS: CONSTITUTIONAL: Denies acute: fever, diaphoresis, chills, HEAD: Denies acute: headache, photophobia Eyes: Denies acute: Double vision, vision loss, eye pain, eye discharge. EARS: Denies acute: tinnitus, hearing loss, ear discharge, ear pain, THROAT: Denies acute: sore throat, swelling, difficulty swallowing , pain with swallowing, change in voice. NECK: Denies acute: neck pain, neck swelling, stiff neck. HEART: Denies acute : chest pain, palpitations, LUNGS: Denies acute: SOB, wheezing, cough, hemoptysis ABDOMEN: Denies acute: abdominal pain, diarrhea, melena , hematemesis, hematochezia SKIN: Denies acute: rash, redness, lesions, itchiness. EXTREMITIES: Denies acute: calf pain, numbness, tingling, weakness, denies pain in extremity. Denies acute: Low back pain. Neuro: Denies acute: focal neurological deficit, motor or sensory focal neurological deficit, tremors, seizure like activity, confusion, dizziness, change in mental status, loss of bowel or bladder function, cauda equina like symptoms. : Denies acute: hematuria, flank pain, PSYCH: Denies acute: hallucination, suicidal ideation, homicidal ideation. FEMALE: Denies acute: abnormal vaginal bleeding, foul odor, unusual discharge. PHYSICAL EXAM: General: no acute distress, awake and alert. Head: normocephalic, atraumatic. Neck: supple, trachea is midline, no swelling. Throat: Normal phonation. Eyes:, no erythema, no purulent discharge, no proptosis, no icterus. Heart: regular rate, regular rhythm, no significant murmur appreciated. Lungs: no apparent respiratory distress, Able to speak in full sentences. No wheezing, no rhonchi, no crackles. No stridors Clear to auscultation bilaterally. Abdomen: non tender to palpation, non distended, soft, no guarding, no rebound, + bowel sounds. Neuro: Awake, Alert, oriented to name, self, situation, follows commands GCS=15. Speech is normal. Skin: no petechia, no purpura, no cyanosis, non-pale, not jaundice. Lower extremities: --no - Pitting edema no deformity, no focal swelling, no calf TTP. Makes eye contact. moves all four extremities. Face: no apparent facial droop. Ambulating in the ED independently. ED COURSE: Time Seen by MD: 15:46 Primary Care Provider: MANUEL Reviewed notes: Medications, Allergies Allergies: Coded Allergies: NO KNOWN ALLERGIES (Unverified , 11/19/16) Home Meds Active Scripts Ticagrelor Base (BRILINTA) 90 Mg Tab, 90 MG PO BID for 90 Days, #180 TAB Prov:CELE MERINO RESIDENT 11/11/23 Carvedilol (COREG) 3.125 Mg Tab, 6.25 MG PO BID for 90 Days, #360 TAB Prov:CELE MERINO RESIDENT 11/11/23 Aspirin (Aspirin Low Dose) 81 Mg Tab, 81 MG PO DAILY for 91 Days, #91 TAB Prov:CELE MERINO RESIDENT 11/11/23 Reported Medications Pravastatin Sodium (PRAVACHOL TABLET) 20 Mg Tb, 40 MG PO, TAB 11/08/23 Tamsulosin Hcl (Tamsulosin Hcl) 0.4 Mg Cap, 0.4 MG PO QPM, MG 11/08/23 Insulin Glargine (Basaglar Kwikpen) 100 Unit/Ml Inj, 24 UNIT SC HS, INJ 11/08/23 Metformin Hydrochloride (Metformin Hcl) 850 Mg Tab, 1 TAB PO BID 06/20/23 Pantoprazole Sodium Sesquihydr (Pantoprazole Sodium) 40 Mg Tab, 1 TAB PO DAILY 06/20/23 Insulin Lispro (Insulin Lispro Kwikpen) 100 Unit/Ml Inj, 8 UNITS SC BIDBRS 06/20/23 Losartan Potassium (Losartan Potassium) 100 Mg Tab, 1 TAB PO DAILY 06/19/23 Information Source: Patient Mode of Arrival: Ambulatory Was a procedure done? Was a procedure done?: No Differential Diagnosis Kidney stone (Female): N/A Urinary Problem (Female): AAA, Appendicitis, Aortic dissection, Ectopic , Impaction, Intrauterine , PID, Post-op complication, Pyelonephritis, Urinary retention, Urolithiasis, UTI, Vaginitis, Other (DKA, infection) X-Ray, Labs, Meds, VS Vital Signs Date Time Temp Pulse Resp B/P (MAP) Pulse Ox O2 Delivery O2 Flow Rate FiO2 04/08/24 19:30 117 18 97 Room Air* 0 21 04/08/24 17:14 99.0 120 17 98/60 (73) 97 99.0 04/08/24 17:14 120 17 97 Room Air* 0 21 04/08/24 16:11 98.2 124 18 97/73 (81) 96 04/08/24 15:47 126 Lab Test 04/08/24 19:09 04/08/24 17:21 04/08/24 16:15 04/08/24 15:45 Range/Units Lactic Acid Level 1.7 2.2 *H 0.4-2.0 mmol/L Troponin I High Sensitivity < 3 L < 3 L < 3 L </=34 ng/L White Blood Count 12.2 H 4.4-10.8 10^3/uL Red Blood Count 5.21 H 4.0-5.20 10^6/uL Hemoglobin 14.9 12.2-16.2 g/dL Hematocrit 44.2 36.0-46.0 % Mean Corpuscular Volume 84.9 80.0-100.0 fL Mean Corpuscular Hemoglobin 28.6 28.0-32.0 pg Mean Corpuscular Hemoglobin Concent 33.7 32.0-36.0 g/dL Red Cell Distribution Width 13.5 11.8-14.3 % Platelet Count 157 140-450 10^3/uL Mean Platelet Volume 9.3 6.9-10.8 fL Neutrophils (%) (Auto) 86.7 H 37.0-80.0 % Lymphocytes (%) (Auto) 7.4 L 10.0-50.0 % Monocytes (%) (Auto) 5.5 0.0-12.0 % Eosinophils (%) (Auto) 0.0 0.0-7.0 % Basophils (%) (Auto) 0.4 0.0-2.0 % Neutrophils # (Auto) 10.6 H 1.6-8.6 10 ^3/uL Lymphocytes # (Auto) 0.9 0.4-5.4 10 ^3/uL Monocytes # (Auto) 0.7 0-1.3 10 ^3/uL Eosinophils # (Auto) 0 0-0.8 10 ^3/uL Basophils # (Auto) 0.1 0-0.2 10 ^3/uL Nucleated Red Blood Cells 0.1 % Sodium Level 127 L 136-145 mmol/L Potassium Level 4.8 3.5-5.1 mmol/L Chloride Level 91 L 98-107 mmol/L Carbon Dioxide Level 24 20-31 mmol/L Anion Gap 12 5-15 Blood Urea Nitrogen 20 9-23 mg/dL Creatinine 1.27 H 0.550-1.02 mg/dL Glomerular Filtration Rate Calc 50 >90 mL/min BUN/Creatinine Ratio 15.7 10.0-20.0 Serum Glucose 352 H 74-106 mg/dL Calcium Level 10.0 8.7-10.4 mg/dL Magnesium Level 1.7 1.6-2.6 mg/dL Total Bilirubin 0.9 0.2-1.0 mg/dL Aspartate Amino Transferase (AST) 21 13-40 U/L Alanine Aminotransferase (ALT) 48 H 7-40 U/L Alkaline Phosphatase 112 46-116 U/L Total Protein 7.4 5.7-8.2 g/dL Albumin 4.9 H 3.2-4.8 g/dL Beta-Hydroxybutyric Acid 1.645 H < 0.4 mmol/L Urine Color Light-orange Yellow Urine Clarity Ex.turbid Clear Urine pH 5.5 5.0-9.0 Urine Specific [place] 1.020 1.001-1.035 Urine Protein 3+ H Negative Urine Ketones 1+ H Negative Urine Blood 2+ H Negative /uL Urine Nitrite Negative Negative Urine Bilirubin Negative Negative Urine Urobilinogen Normal Negative mg/dL Urine Leukocyte Esterase 2+ Negative /uL Urine RBC 14 0 - 4 /hpf Urine WBC Clumps Present None Seen /hpf Urine Microscopic WBC 128 H 0-5 /HPF Urine Squamous Epithelial Cells Mod <5 /hpf Urine Bacteria Many H None Seen /hpf Urine Hyaline Casts Few 0 - 2 /lpf Urine Mucus Few None Seen Urine Yeast (Budding) Moderate None Seen /hpf Urine Glucose 4+ H Normal mg/dL Urine Opiates Screen Neg NEGATIVE Urine Fentanyl Screen Neg NEGATIVE Urine Barbiturates Screen Neg NEGATIVE Urine Phencyclidine Screen Neg NEGATIVE Urine Amphetamines Screen Neg NEGATIVE Urine Benzodiazepines Screen Neg NEGATIVE Urine Cocaine Screen Neg NEGATIVE Urine Cannabinoids Screen Neg NEGATIVE Test 04/08/24 15:41 Range/Units POC Glucose 343 H 70-106 mg/dl Current Medications Medications (Trade) Dose Ordered Sig/Karen Route Start Time Stop Time Status Last Admin Sodium Chloride 1,000 ml @ 1,000 mls/hr Q1H ONCE IV 04/08/24 15:45 04/08/24 16:44 DC 04/08/24 17:06 Ondansetron HCl (Zofran) 8 mg ONCE ONCE IV 04/08/24 15:45 04/08/24 15:48 DC 04/08/24 17:09 Ceftriaxone Sodium 50 ml @ 100 mls/hr ONCE ONCE IV 04/08/24 17:15 04/08/24 17:44 DC 04/08/24 17:25 Acetaminophen/ Hydrocodone Bitart ([place] 5/325MG Tab) 1 tab ONCE ONCE PO 04/08/24 17:15 04/08/24 17:16 DC 04/08/24 17:24 [place] [id number] Ph: [phone] DIAGNOSTIC IMAGING Diagnostic Imaging Report : [id number] Signed PATIENT: THOMAS ARCHER EACCT: [id number] UNIT: [id number] : 1970 LOC: ER ROOM / BED: / AGE / SEX: 53 / F ADM STATUS: REG ER SERVICE [id number] ORDERING PHYSICIAN: JOSE A LAGUNAS DO PROCEDURE(s): ABPL - CT AB PEL WO CON-NO ORAL OR IV REASON: n/v ORDER NUMBER(s): [id number], ACCESSION NUMBER(s): [id number] Procedure: CT CT AB PEL WO CON-NO ORAL OR IV 04/08/2024 05:24 PM Indication: n/v Comparison Study: CT CT AB PEL WO CON-NO ORAL OR IV on DOS: 03/23/23 Technique: Axial images were obtained and reformatted in coronal and sagittal planes. All CT scans at this medical facility are performed using dose modulation elisabet hniques as appropriate to a performed exam including the following: Automated exposure control was utilized; adjustment of the MA and/or KV according to patient size; and use of iterative reconstruction technique. CT Dose: CTDI volume is 9.05 mGy. Dose-length product is 539.15 mGy*cm FINDINGS: Lower Chest: The heart is normal in size. Coronary artery calcification noted. A subcentimeter calcified granuloma is seen in the left lower lobe Hepatobiliary: Mild hepatomegaly. Spleen: Mildly enlarged, 14.5 cm in craniocaudal. Pancreas: Pancreatic head and proximal body are unremarkable. Distal body and tail are not seen probably atrophic. No pancreatic ductal dilatation. No calcification or cyst formation. Adrenal Glands: Unremarkable. tract: The kidneys are normal in size bilaterally without hydronephrosis . A 2 mm nonobstructing stone is seen in the upper pole of the left kidney. Mild diffuse bladder wall thickening could be at least in part due to lack of distention. GI tract: The stomach is grossly normal in appearance. No evidence of small bowel obstruction. The large bowel is unremarkable. The appendix is normal. Lymphatics: No mesenteric, retroperitoneal or periportal lymphadenopathy. Vasculature: The abdominal aorta is normal in caliber. Diffuse calcified plaque formation is noted. Pelvic Organs: The uterus is not identified likely surgically absent. Bones/soft tissues: No acute abnormality. Multilevel degenerative changes of the lumbar spine noted. Other: None. IMPRESSION: 1. No CT evidence of acute abnormality in the abdomen and pelvis. 2. Mild hepatosplenomegaly. 3. Diffuse atherosclerotic disease. 4. Subcentimeter nonobstructing left renal stone. ATED BY: ALEJANDRINA JACOBSON MD DICTATED DATE/TIME: 04/08/241802 SIGNED BY: ALEJANDRINA JACOBSON MD SIGNED DATE/TIME: 04/08/241802 CC: [facility] [id number] [place] [id number] Ph: [phone] DIAGNOSTIC IMAGING Diagnostic Imaging Report : [id number] Signed PATIENT: THOMAS ARCHER EACCT: [id number] UNIT: [id number] : 1970 LOC: ER ROOM / BED: / AGE / SEX: 53 / F ADM STATUS: REG ER SERVICE [id number] ORDERING PHYSICIAN: JOSE A LAGUNAS DO PROCEDURE(s): CXRP - CHEST PORTABLE REASON: weak n/v ORDER NUMBER(s): [id number], ACCESSION NUMBER(s): [id number] CHEST RADIOGRAPH Indication: weak n/v Technique: Single frontal view of the chest was obtained Comparison: XY CHEST PORTABLE on DOS: 11/07/23, XY CHEST PORTABLE on DOS: 03/23/23, CHEST PORTABLE on DOS: 09/15/21, CXRP on DOS: 09/15/21 FINDINGS: Lines and Tubes: None Lungs: No focal consolidation. Pleura: No effusion. No pneumothorax. Cardiomediastinal contours: Unremarkable Bones: No acute osseous abnormality. IMPRESSION: No acute cardiopulmonary disease. ATED BY: DWIGHT LEON MD DICTATED DATE/TIME: 04/08/24 1605 SIGNED BY: DWIGHT LEON MD SIGNED DATE/TIME: 04/08/24 1605 CC: Time of 1ST Reevaluation: 16:46 Reevaluation 1ST: Unchanged Time of 2ND Reevaluation: 01:30 Reevaluation 2ND: Improved Patient Education/Counseling: Diagnosis, Treatment Family Education/Counseling: No Family Present Comments Patient presented with the above HPI.---urinary symptoms/hyperglycemia---workup was initiated. patient was found with the above mentioned diagnosis. the following medications were ordered: please refer to order lists of meds and tests obtained by myself Dr. Lagunas. Patient ED course and VS have been stabilized. Patient has been reassessed in the ED and remained in a stable condition. Pertinent incidental findings were discussed with the patient and/or family. Patient/family voices understanding and is agreeable with plan. Patient has been observed in the ED adequate length of time to insure improvement/stability. Escalation of care considered: Consideration of escalation to observation or admission Patient was ADMITTED to the medicine team for further evaluation and treatment of their presentation. All the reports of any imaging studies that were ordered by myself were reviewed by myself. Departure 1 Departure Time of Disposition: 17:10 Impression: Primary Impression: Sepsis Additional Impressions: Hyponatremia Uncontrolled diabetes mellitus UTI (urinary tract infection) Hepatosplenomegaly Disposition: ADMITTED INPATIENT Admit to: Tele Condition: Guarded Discharged With: Self Critical Care Note Critical Care Time?: Yes (45 min-critical care time only) I personally scribed for JOSE A LAGUNAS DO ([email or web address]) on 04/08/24 at 15:50. Electronically submitted by Jer Sauceda ([email or web address]). I personally scribed for JOSE A LAGUNAS DO ([email or web address]) on 04/08/24 at 17:13. Electronically submitted by Jer Sauceda ([email or web address]). I personally scribed for JOSE A LAGUNAS DO ([email or web address]) on 04/08/24 at 20:30. Electronically submitted by Nan Hagan ([email or web address]). JOSE A LAGUNAS DO Apr 08, 2024 15:50
--- NOTE | 2024-04-08 16:07 | DVH ---
CHEST RADIOGRAPH Indication: weak n/v Technique: Single frontal view of the chest was obtained Comparison: XY CHEST PORTABLE on DOS: 11/07/23, XY CHEST PORTABLE on DOS: 03/23/23, CHEST PORTABLE on D OS: 09/15/21, CXRP on DOS: 09/15/21 FINDINGS: Lines and Tubes: None Lungs: No focal consolidation. Pleura: No effusion. No pneumothorax. Cardiomediastinal contours: Unremarkable Bones: No acute osseous abnormality. IMPRESSION: No acute cardiopulmonary disease.
[2024-04-08 16:29] LABS: Basophils # (auto) 0.1 10 ^3/uL (0-0.2); Basophils % (auto) 0.4 % (0.0-2.0); Eosinophils # (auto) 0 10 ^3/uL (0-0.8); Hematocrit 44.2 % (36.0-46.0); Hemoglobin 14.9 g/dL (12.2-16.2); Lymphocytes # (auto) 0.9 10 ^3/uL (0.4-5.4); Lymphocytes % (auto) 7.4 % (10.0-50.0); Mean Corpuscular Hemoglobin 28.6 pg (28.0-32.0); Mean Corpuscular Hgb Conc. 33.7 g/dL (32.0-36.0); Mean Corpuscular Volume 84.9 fL (80.0-100.0); Monocytes # (auto) 0.7 10 ^3/uL (0-1.3); Monocytes % (auto) 5.5 % (0.0-12.0); Neutrophils # (auto) 10.6 10 ^3/uL (1.6-8.6); Neutrophils % (auto) 86.7 % (37.0-80.0); Nucleated Red Blood Cells % 0.1 %; Platelet Count (auto) 157 10^3/uL (140-450); Red Blood Cells 5.21 10^6/uL (4.0-5.20); Red Cell Distribution Width 13.5 % (11.8-14.3); White Blood Cell 12.2 10^3/uL (4.4-10.8)
[2024-04-08 16:52] LABS: Alkaline Phosphatase 112 U/L (46-116); Anion Gap 12 (5-15); Aspartate Aminotransferase 21 U/L (13-40); BUN/Creatinine Ratio 15.7 (10.0-20.0); Blood Urea Nitrogen 20 mg/dL (9-23); Carbon Dioxide 24 mmol/L (20-31); Magnesium 1.7 mg/dL (1.6-2.6); Potassium 4.8 mmol/L (3.5-5.1)
[2024-04-08 16:53] LABS: Bilirubin, Total 0.9 mg/dL (0.2-1.0); Total Protein 7.4 g/dL (5.7-8.2)
[2024-04-08 16:56] LABS: Alanine Aminotransferase 48 U/L (7-40); Albumin 4.9 g/dL (3.2-4.8); Chloride 91 mmol/L (98-107); Glucose 352 mg/dL (74-106); Lactic Acid w/Reflex 2.2 mmol/L (0.4-2.0); Sodium 127 mmol/L (136-145)
[2024-04-08] MEDS: SODIUM CHLORIDE 0.9% 1,000 ML IV ONE (17:06)
[2024-04-08] MEDS: ONDANSETRON HCL 4 MG/2 ML VIAL IV ONE (17:09)
[2024-04-08 17:14] VITALS: PULSE 120; RESP 17; O2SAT 97
[2024-04-08] MEDS: HYDROcodone-ACET 5/325MG TAB PO ONE (17:24)
[2024-04-08] MEDS: cefTRIAXone 1GM/50ML D5W 50 ML IV ONE (17:25)
--- NOTE | 2024-04-08 18:06 | DVH ---
Procedure: CT CT AB PEL WO CON-NO ORAL OR IV 04/08/2024 05:24 PM Indication: n/v Comparison Study: CT CT AB PEL WO CON-NO ORAL OR IV on DOS: 03/23/23 Technique: Axial images were obtained and reformatted in coronal and sagittal planes. All CT scans at this medical facility are performed using dose modulation techniques as appropriate t o a performed exam including the following: Automated exposure control was utilized; adjustment of th e MA and/or KV according to patient size; and use of iterative reconstruction technique. CT Dose: CTDI volume is 9.05 mGy. Dose-length product is 539.15 mGy*cm FINDINGS: Lower Chest: The heart is normal in size. Coronary artery calcification noted. A subcentimeter calci fied granuloma is seen in the left lower lobe Hepatobiliary: Mild hepatomegaly. Spleen: Mildly enlarged, 14.5 cm in craniocaudal. Pancreas: Pancreatic head and proximal body are unremarkable. Distal body and tail are not seen prob ably atrophic. No pancreatic ductal dilatation. No calcification or cyst formation. Adrenal Glands: Unremarkable. tract: The kidneys are normal in size bilaterally without hydronephrosis . A 2 mm nonobstructing stone is seen in the upper pole of the left kidney. Mild diffuse bladder wall thickening could be at least in part due to lack of distention. GI tract: The stomach is grossly normal in appearance. No evidence of small bowel obstruction. The la rge bowel is unremarkable. The appendix is normal. Lymphatics: No mesenteric, retroperitoneal or periportal lymphadenopathy. Vasculature: The abdominal aorta is normal in caliber. Diffuse calcified plaque formation is noted. Pelvic Organs: The uterus is not identified likely surgically absent. Bones/soft tissues: No acute abnormality. Multilevel degenerative changes of the lumbar spine noted. Other: None. IMPRESSION: 1. No CT evidence of acute abnormality in the abdomen and pelvis. 2. Mild hepatosplenomegaly. 3. Diffuse atherosclerotic disease. 4. Subcentimeter nonobstructing left renal stone.
[2024-04-08 18:43] LABS: Urine Bacteria MANY /hpf (None Seen); Urine Blood 2+ /uL (Negative); Urine Budding Yeast MODERATE /hpf (None Seen); Urine Clarity Ex.Turbid (Clear); Urine Color Light-Orange (Yellow); Urine Hyaline Cast FEW /lpf (0 - 2); Urine Mucus FEW (None Seen); Urine Protein, UAD 3+ (Negative); Urine Squamous Epithelial Cell MOD /hpf (<5); Urine Urobilinogen Normal (Negative); Urine WBC 128 /HPF (0-5); Urine WBC Clumps PRESENT /hpf (None Seen); Urine pH 5.5 (5.0-9.0)
[2024-04-08 18:44] LABS: Amphetamine Screen, Urine Neg (NEGATIVE); Barbiturate Scree,Urine Neg (NEGATIVE); Benzodiazephine Screen, Urine Neg (NEGATIVE); Cannabinoid Screen, Urine Neg (NEGATIVE); Cocaine Screen, Urine Neg (NEGATIVE); Opiate Scree,Urine Neg (NEGATIVE); Phencyclidine Screen, Urine Neg (NEGATIVE)
[2024-04-08 19:30] VITALS: PULSE 117; RESP 18; O2SAT 97
[2024-04-08] MEDS: SODIUM CHLORIDE 0.9% 500 ML IV ONE (19:45)
[2024-04-08] MEDS ORDERED: ONDANSETRON HCL 4 MG/2 ML VIAL IV PRN (19:45)
[2024-04-08] MEDS ORDERED: DEXTROSE (50%) 50ML SYRG IV PRN (19:45)
[2024-04-08] MEDS: ACCU-CHEK COMFORT CURVE STRIP VI SCH (20:00)
[2024-04-08] MEDS: TICAGRELOR 90 MG TAB PO SCH (22:54)
[2024-04-08] MEDS: ATORVASTATIN 20 MG TAB PO SCH (22:54)
[2024-04-08] MEDS: InsuLIN REG 1unit/0.01ml Soln (100units/ml) SC SCH (23:20)
[2024-04-09] VITALS (8 sets, daily range): BP systolic 105–145; BP diastolic 63–81; PULSE 83–99; RESP 16–19; TEMP 97.7–101.9; O2SAT 96–100
[2024-04-09] MEDS: ACETAMINOPHEN 325 MG TAB PO PRN (02:43)
--- NOTE | 2024-04-09 04:44 | DVHHP2 ---
History of Present Illness Reason for Visit: Flank pain History of Present Illness 53-year-old female presents for evaluation of urinary symptoms. The patient reports a two day history of lower abdominal pain that radiates to her left flank with associated dysuria nausea and fatigue. She also reports her blood sugar readings being elevated. Denies any other acute symptoms. Past Medical History Urinary tract infection, hypertension, diabetes mellitus Past Surgical History Hysterectomy Family History Noncontributory Smoke: No ALCOHOL: none Drugs: None Lives: with Family Review of Systems Review of Systems Review of systems are currently negative otherwise addressed in HPI. Allergies: Coded Allergies: NO KNOWN ALLERGIES (Unverified , 11/19/16) Medications Current Medications Medications Dose Ordered Sig/Karen Route Start Time Stop Time Status Last Admin Dose Admin Atorvastatin Calcium 20 mg HS PO 04/08/24 22:00 04/08/24 22:54 20 MG Ticagrelor 90 mg BID PO 04/08/24 22:00 04/08/24 22:54 90 MG Ceftriaxone Sodium 50 ml @ 100 mls/hr DAILY@09 IV 04/09/24 09:00 Diagnostic Test (Pha) 1 strip IQ4HR 04/08/24 20:00 04/08/24 20:00 1 STRIP Insulin Human Regular IQ4HR SC 04/08/24 20:00 04/08/24 23:20 10 UNITS Dextrose 50 ml UD PRN IV 04/08/24 19:45 Ondansetron HCl 4 mg Q4HP PRN IV 04/08/24 19:45 Acetaminophen 650 mg Q6HP PRN PO 04/08/24 19:45 04/09/24 02:43 650 MG Exam Vital Signs Vital Signs Date Time Temp Pulse Resp B/P (MAP) Pulse Ox O2 Delivery O2 Flow Rate FiO2 04/09/24 03:17 101.9 89 19 124/65 (84) 100 101.9 04/09/24 03:17 Room Air* 0 21 Exam Gen: 53-year-old female in mild distress Skin: Warm, dry, normal color and texture, no rash. HEENT: Normocephalic atraumatic, mucous membranes moist and pink. Neck: Cervical and supraclavicular nodes normal without enlargement, trachea is midline, thyroid gland is normal without masses. Pulmonary: Clear to auscultation and percussion bilaterally. Cardiac: Regular rate and rhythm. No murmur Abdomen: Soft, lower abdominal tenderness, nondistended, bowel sounds present all 4 quadrants, no guarding, no rigidity, no organomegaly. Extremities: No cyanosis, clubbing, no edema Neuro: Cranial nerves II through XII grossly intact, normal affect and speech, no focal motor deficits. Labs/Xrays ORDERING PHYSICIAN: JOSE A LAGUNAS DO PROCEDURE(s): ABPL - CT AB PEL WO CON-NO ORAL OR IV REASON: n/v ORDER NUMBER(s): [id number], ACCESSION NUMBER(s): [id number] Procedure: CT CT AB PEL WO CON-NO ORAL OR IV 04/08/2024 05:24 PM Indication: n/v Comparison Study: CT CT AB PEL WO CON-NO ORAL OR IV on DOS: 03/23/23 Technique: Axial images were obtained and reformatted in coronal and sagittal planes. All CT scans at this medical facility are performed using dose modulation t echniques as appropriate to a performed exam including the following: Automated exposure control was utilized; adjustment of the MA and/or KV according to patient size; and use of iterative reconstruction technique. CT Dose: CTDI volume is 9.05 mGy. Dose-length product is 539.15 mGy*cm FINDINGS: Lower Chest: The heart is normal in size. Coronary artery calcification noted. A subcentimeter calcified granuloma is seen in the left lower lobe Hepatobiliary: Mild hepatomegaly. Spleen: Mildly enlarged, 14.5 cm in craniocaudal. Pancreas: Pancreatic head and proximal body are unremarkable. Distal body and tail are not seen probably atrophic. No pancreatic ductal dilatation. No calcification or cyst formation. Adrenal Glands: Unremarkable. tract: The kidneys are normal in size bilaterally without hydronephrosis . A 2 mm nonobstructing stone is seen in the upper pole of the left kidney. Mild diffuse bladder wall thickening could be at least in part due to lack of distention. GI tract: The stomach is grossly normal in appearance. No evidence of small bowel obstruction. The large bowel is unremarkable. The appendix is normal. Lymphatics: No mesenteric, retroperitoneal or periportal lymphadenopathy. Vasculature: The abdominal aorta is normal in caliber. Diffuse calcified plaque formation is noted. Pelvic Organs: The uterus is not identified likely surgically absent. Bones/soft tissues: No acute abnormality. Multilevel degenerative changes of the lumbar spine noted. Other: None. IMPRESSION: 1. No CT evidence of acute abnormality in the abdomen and pelvis. 2. Mild hepatosplenomegaly. 3. Diffuse atherosclerotic disease. 4. Subcentimeter nonobstructing left renal stone. Labs Test 04/08/24 23:01 04/08/24 19:09 04/08/24 16:15 04/08/24 15:45 Range/Units POC Glucose 423 *H 70-106 mg/dl Lactic Acid Level 1.7 0.4-2.0 mmol/L Troponin I High Sensitivity < 3 L </=34 ng/L White Blood Count 12.2 H 4.4-10.8 10^3/uL Red Blood Count 5.21 H 4.0-5.20 10^6/uL Hemoglobin 14.9 12.2-16.2 g/dL Hematocrit 44.2 36.0-46.0 % Mean Corpuscular Volume 84.9 80.0-100.0 fL Mean Corpuscular Hemoglobin 28.6 28.0-32.0 pg Mean Corpuscular Hemoglobin Concent 33.7 32.0-36.0 g/dL Red Cell Distribution Width 13.5 11.8-14.3 % Platelet Count 157 140-450 10^3/uL Mean Platelet Volume 9.3 6.9-10.8 fL Neutrophils (%) (Auto) 86.7 H 37.0-80.0 % Lymphocytes (%) (Auto) 7.4 L 10.0-50.0 % Monocytes (%) (Auto) 5.5 0.0-12.0 % Eosinophils (%) (Auto) 0.0 0.0-7.0 % Basophils (%) (Auto) 0.4 0.0-2.0 % Neutrophils # (Auto) 10.6 H 1.6-8.6 10 ^3/uL Lymphocytes # (Auto) 0.9 0.4-5.4 10 ^3/uL Monocytes # (Auto) 0.7 0-1.3 10 ^3/uL Eosinophils # (Auto) 0 0-0.8 10 ^3/uL Basophils # (Auto) 0.1 0-0.2 10 ^3/uL Nucleated Red Blood Cells 0.1 % Sodium Level 127 L 136-145 mmol/L Potassium Level 4.8 3.5-5.1 mmol/L Chloride Level 91 L 98-107 mmol/L Carbon Dioxide Level 24 20-31 mmol/L Anion Gap 12 5-15 Blood Urea Nitrogen 20 9-23 mg/dL Creatinine 1.27 H 0.550-1.02 mg/dL Glomerular Filtration Rate Calc 50 >90 mL/min BUN/Creatinine Ratio 15.7 10.0-20.0 Serum Glucose 352 H 74-106 mg/dL Calcium Level 10.0 8.7-10.4 mg/dL Magnesium Level 1.7 1.6-2.6 mg/dL Total Bilirubin 0.9 0.2-1.0 mg/dL Aspartate Amino Transferase (AST) 21 13-40 U/L Alanine Aminotransferase (ALT) 48 H 7-40 U/L Alkaline Phosphatase 112 46-116 U/L Total Protein 7.4 5.7-8.2 g/dL Albumin 4.9 H 3.2-4.8 g/dL Beta-Hydroxybutyric Acid 1.645 H < 0.4 mmol/L Urine Color Light-orange Yellow Urine Clarity Ex.turbid Clear Urine pH 5.5 5.0-9.0 Urine Specific [place] 1.020 1.001-1.035 Urine Protein 3+ H Negative Urine Ketones 1+ H Negative Urine Blood 2+ H Negative /uL Urine Nitrite Negative Negative Urine Bilirubin Negative Negative Urine Urobilinogen Normal Negative mg/dL Urine Leukocyte Esterase 2+ Negative /uL Urine RBC 14 0 - 4 /hpf Urine WBC Clumps Present None Seen /hpf Urine Microscopic WBC 128 H 0-5 /HPF Urine Squamous Epithelial Cells Mod <5 /hpf Urine Bacteria Many H None Seen /hpf Urine Hyaline Casts Few 0 - 2 /lpf Urine Mucus Few None Seen Urine Yeast (Budding) Moderate None Seen /hpf Urine Glucose 4+ H Normal mg/dL Urine Opiates Screen Neg NEGATIVE Urine Fentanyl Screen Neg NEGATIVE Urine Barbiturates Screen Neg NEGATIVE Urine Phencyclidine Screen Neg NEGATIVE Urine Amphetamines Screen Neg NEGATIVE Urine Benzodiazepines Screen Neg NEGATIVE Urine Cocaine Screen Neg NEGATIVE Urine Cannabinoids Screen Neg NEGATIVE Assessment/Plan Assessment/Plan Assessment Sepsis Acute pyelonephritis Acute kidney injury secondary to the above Uncontrolled diabetes mellitus Plan [facility] to [facility] hospitalist Tamiko Urine bacterial culture pending Resume home medications Continue treatment per orders. Plan discussed with: Patient My Orders Orders - KRISS COY Procedure Category Date Status Time Atorvastatin (Lipitor) PHA 04/08/24 In Process 22:00 Ticagrelor (Brilinta) PHA 04/08/24 In Process 22:00 Urine Bacterial IAM 04/08/24 In Process Culture 19:33 Ceftriaxone 1gm/50ml PHA 04/09/24 In Process D5w (Rocephin) 09:00 Consistent DIET 04/09/24 Transmitted Carb(Ccho)Diabetes Breakfast Basic Metabolic Panel LAB 04/09/24 Logged 04:00 Glucose Blood PHA 04/08/24 In Process (Accu-Chek Comfort 20:00 Insulin R (Human) PHA 04/08/24 In Process (Insulin R) 20:00 Dextrose 50% Syringe PHA 04/08/24 In Process 19:45 Admit ADMIT 04/08/24 Transmitted 19:33 Ondansetron Hcl PHA 04/08/24 In Process (Zofran) 19:45 Complete Blood Count LAB 04/09/24 Logged 04:00 Condition: Stable NINI 04/08/24 In Process 19:33 Acetaminophen Tablet PHA 04/08/24 In Process (Tylenol Tablet) 19:45 Bedrest With Bathroom NINI 04/08/24 In Process Privileg 19:33 Hepatitis B Surface LAB 04/09/24 Logged Antigen 04:00 Hepatitis C Antibody LAB 04/09/24 Logged 04:00 Covid19 Antigen Geri LAB 04/09/24 Logged * Property Claims Manager CONS 04/09/24 Transmitted Consult Date of Service: Apr 08, 2024 Billing Provider: KRISS COY Common Visit Codes: [id number] INP/OBS CARE (HIGH) KRISS COY Apr 09, 2024 04:44
[2024-04-09 05:27] LABS: Basophils # (auto) 0 10 ^3/uL (0-0.2); Basophils % (auto) 0.4 % (0.0-2.0); Eosinophils # (auto) 0 10 ^3/uL (0-0.8); Eosinophils % (auto) 0.2 % (0.0-7.0); Hematocrit 38.1 % (36.0-46.0); Hemoglobin 12.7 g/dL (12.2-16.2); Lymphocytes # (auto) 1.1 10 ^3/uL (0.4-5.4); Lymphocytes % (auto) 13.3 % (10.0-50.0); Mean Corpuscular Hemoglobin 28.3 pg (28.0-32.0); Mean Corpuscular Hgb Conc. 33.4 g/dL (32.0-36.0); Mean Corpuscular Volume 84.8 fL (80.0-100.0); Monocytes # (auto) 0.7 10 ^3/uL (0-1.3); Neutrophils # (auto) 6.4 10 ^3/uL (1.6-8.6); Neutrophils % (auto) 78.1 % (37.0-80.0); Platelet Count (auto) 124 10^3/uL (140-450); Red Cell Distribution Width 13.4 % (11.8-14.3); White Blood Cell 8.2 10^3/uL (4.4-10.8)
[2024-04-09 05:41] LABS: Anion Gap 9 (5-15); Carbon Dioxide 23 mmol/L (20-31); Potassium 4.1 mmol/L (3.5-5.1)
[2024-04-09 05:42] LABS: Calcium 9.3 mg/dL (8.7-10.4)
[2024-04-09 05:47] LABS: BUN/Creatinine Ratio 20.8 (10.0-20.0); Blood Urea Nitrogen 22 mg/dL (9-23)
[2024-04-09 06:30] LABS: Chloride 97 mmol/L (98-107); Glucose 309 mg/dL (74-106); Sodium 129 mmol/L (136-145)
[2024-04-09] MEDS: cefTRIAXone 1GM/50ML D5W 50 ML IV SCH (08:43)
[2024-04-09 11:08] LABS: Hepatitis B Surface Antigen Negative (Negative)
[2024-04-09 11:10] LABS: Hepatitis C Antibody Negative (Negative)
--- NOTE | 2024-04-09 11:36 | DVHPN2 ---
Reviewed: Care Plan, H&P, Labs, Medications, Previous Orders, Radiology Changes from previous H/P or p: No Changes Objective Vitals Vital Signs Date Time Temp Pulse Resp B/P (MAP) Pulse Ox O2 Delivery O2 Flow Rate FiO2 04/09/24 09:00 99.1 99 18 133/78 (96) 97 99.1 04/09/24 03:17 Room Air* 0 21 Intake/Output Intake and Output 04/09/24 07:00 Intake Total 100 ml Balance 100 ml Intake Oral 100 ml # Voids 1 Medications Current Medications Medications Dose Ordered Sig/Karen Route Start Time Stop Time Status Last Admin Dose Admin Atorvastatin Calcium 20 mg HS PO 04/08/24 22:00 04/08/24 22:54 20 MG Ticagrelor 90 mg BID PO 04/08/24 22:00 04/08/24 22:54 90 MG Ceftriaxone Sodium 50 ml @ 100 mls/hr DAILY@09 IV 04/09/24 09:00 04/09/24 08:43 100 MLS/HR Diagnostic Test (Pha) 1 strip IQ4HR 04/08/24 20:00 04/09/24 08:00 1 STRIP Insulin Human Regular IQ4HR SC 04/08/24 20:00 04/09/24 08:42 4 UNITS Dextrose 50 ml UD PRN IV 04/08/24 19:45 Ondansetron HCl 4 mg Q4HP PRN IV 04/08/24 19:45 Acetaminophen 650 mg Q6HP PRN PO 04/08/24 19:45 04/09/24 08:40 650 MG Laboratory Results Laboratory Tests 04/09/24 05:07 Chemistry Test 04/08/24 16:15 04/09/24 05:07 Albumin 4.9 g/dL (3.2-4.8) H Calcium Level 10.0 mg/dL (8.7-10.4) 9.3 mg/dL (8.7-10.4) Magnesium Level 1.7 mg/dL (1.6-2.6) Total Protein 7.4 g/dL (5.7-8.2) LFT Test 04/08/24 16:15 Alanine Aminotransferase (ALT) 48 U/L (7-40) H Alkaline Phosphatase 112 U/L (46-116) Aspartate Amino Transferase (AST) 21 U/L (13-40) Total Bilirubin 0.9 mg/dL (0.2-1.0) Urinalysis Test 04/08/24 15:45 Urine Color Light-orange (Yellow) Urine Clarity Ex.turbid (Clear) Urine pH 5.5 (5.0-9.0) Urine Specific [place] 1.020 (1.001-1.035) Urine Protein 3+ (Negative) H Urine Ketones 1+ (Negative) H Urine Blood 2+ /uL (Negative) H Urine Nitrite Negative (Negative) Urine Bilirubin Negative (Negative) Urine Urobilinogen Normal mg/dL (Negative) Urine Leukocyte Esterase 2+ /uL (Negative) Urine RBC 14 /hpf (0 - 4) Urine WBC Clumps Present /hpf (None Seen) Urine Microscopic WBC 128 /HPF (0-5) H Urine Squamous Epithelial Cells Mod /hpf (<5) Urine Bacteria Many /hpf (None Seen) H Urine Hyaline Casts Few /lpf (0 - 2) Urine Mucus Few (None Seen) Urine Yeast (Budding) Moderate /hpf (None Seen) Urine Glucose 4+ mg/dL (Normal) H Microbiology Microbiology Date/Time Source Procedure Growth Status 04/08/24 15:45 Voided Urine Urine Culture - Preliminary Resulted Labs and/or images reviewed: Labs reviewed by me, Image(s) reviewed by me Assessment/Plan Assessment/Plan Sepsis Secondary to urinary tract infection: Blood cultures pending, urine cultures growing Gram-negative rods, Rocephin Acute pyelonephritis Hypertension History of NM status post stents: Continue Brilinta Uncontrolled diabetes: Insulin sliding scale Hypercholesterolemia: Lipitor History of recurrent UTI CT abdomen pelvis without contrast neg Plan discussed with: Patient My Orders Orders - JJ HANNON MD Procedure Category Date Status Time Hemoglobin A1c LAB 04/09/24 Transmitted 11:28 Date of Service: Apr 09, 2024 Billing Provider: JJ HANNON MD Common Visit Codes: [id number] INP/OBS CARE(HIGH) JJ HANNON MD Apr 09, 2024 11:36
[2024-04-10 00:33] VITALS: BP 129/78; PULSE 83; RESP 18; TEMP 98; O2SAT 98
[2024-04-10 00:40] LABS: COVID19 ANTIGEN SOFIA FIA NEGATIVE (NEGATIVE)
[2024-04-10 05:00] VITALS: BP 148/83; PULSE 83; RESP 18; TEMP 98; O2SAT 98
[2024-04-10] MEDS: KETOROLAC TROMETH 30 MG/ML 1ML VIAL IV ONE (08:24)
[2024-04-10 09:00] VITALS: BP 138/74; PULSE 79; RESP 16; TEMP 98.3; O2SAT 98
[2024-04-10] MEDS ORDERED: CIPR-173 PO (10:01)
--- NOTE | 2024-04-10 10:02 | DVHPN2 ---
Reviewed: Care Plan, H&P, Labs, Medications, Previous Orders, Radiology Changes from previous H/P or p: No Changes Objective Vitals Vital Signs Date Time Temp Pulse Resp B/P (MAP) Pulse Ox O2 Delivery O2 Flow Rate FiO2 04/10/24 09:00 98.3 79 16 138/74 (95) 98 98.3 04/09/24 20:00 Room Air* 0 21 Intake/Output Intake and Output 04/10/24 07:00 Intake Total 1119 ml Balance 1119 ml Intake Oral 1069 ml IV Total 50 ml # Voids 5 # Bowel Movements 2 Medications Current Medications Medications Dose Ordered Sig/Karen Route Start Time Stop Time Status Last Admin Dose Admin Atorvastatin Calcium 20 mg HS PO 04/08/24 22:00 04/09/24 23:14 20 MG Ticagrelor 90 mg BID PO 04/08/24 22:00 04/09/24 23:14 90 MG Ceftriaxone Sodium 50 ml @ 100 mls/hr DAILY@09 IV 04/09/24 09:00 04/10/24 07:59 100 MLS/HR Diagnostic Test (Pha) 1 strip IQ4HR 04/08/24 20:00 04/10/24 07:59 1 STRIP Insulin Human Regular IQ4HR SC 04/08/24 20:00 04/10/24 08:32 4 UNITS Dextrose 50 ml UD PRN IV 04/08/24 19:45 Ondansetron HCl 4 mg Q4HP PRN IV 04/08/24 19:45 Acetaminophen 650 mg Q6HP PRN PO 04/08/24 19:45 04/09/24 23:27 650 MG Laboratory Results Laboratory Tests 04/09/24 05:07 Urinalysis Test 04/08/24 15:45 Urine Color Light-orange (Yellow) Urine Clarity Ex.turbid (Clear) Urine pH 5.5 (5.0-9.0) Urine Specific [place] 1.020 (1.001-1.035) Urine Protein 3+ (Negative) H Urine Ketones 1+ (Negative) H Urine Blood 2+ /uL (Negative) H Urine Nitrite Negative (Negative) Urine Bilirubin Negative (Negative) Urine Urobilinogen Normal mg/dL (Negative) Urine Leukocyte Esterase 2+ /uL (Negative) Urine RBC 14 /hpf (0 - 4) Urine WBC Clumps Present /hpf (None Seen) Urine Microscopic WBC 128 /HPF (0-5) H Urine Squamous Epithelial Cells Mod /hpf (<5) Urine Bacteria Many /hpf (None Seen) H Urine Hyaline Casts Few /lpf (0 - 2) Urine Mucus Few (None Seen) Urine Yeast (Budding) Moderate /hpf (None Seen) Urine Glucose 4+ mg/dL (Normal) H Microbiology Microbiology Date/Time Source Procedure Growth Status 04/08/24 15:45 Voided Urine Urine Culture - Final Escherichia coli Complete Labs and/or images reviewed: Labs reviewed by me, Image(s) reviewed by me Assessment/Plan Assessment/Plan Sepsis Secondary to urinary tract infection: Blood cultures pending, urine cultures growing E coli sensitive to Rocephin and Levaquin Acute pyelonephritis Hypertension History of ID status post stents: Continue Brilinta Uncontrolled diabetes: Insulin sliding scale Hypercholesterolemia: Lipitor History of recurrent UTI CT abdomen pelvis without contrast neg Plan discussed with: Patient My Orders Orders - JJ HANNON MD Procedure Category Date Status Time Blood Culture IAM 04/09/24 In Process 11:31 Date of Service: Apr 10, 2024 Billing Provider: JJ HANNON MD Common Visit Codes: [id number] INP/OBS CARE(HIGH) JJ HANNON MD Apr 10, 2024 10:02
--- NOTE | 2024-04-10 10:05 | DVHDS2 ---
Discharge Summary Date of Admission Apr 08, 2024 at 19:33 Date of Discharge: Apr 10, 2024 Admitting Diagnosis Generalized weakness and abdominal pain Wounds: None Labs/Diagnostic Data: Laboratory Results Test 04/10/24 08:02 04/09/24 23:22 04/09/24 05:07 04/08/24 19:09 POC Glucose 204 mg/dl (70-106) SARS-CoV-2 Antigen (Rapid) Negative (NEGATIVE) White Blood Count 8.2 10^3/uL (4.4-10.8) Red Blood Count 4.50 10^6/uL (4.0-5.20) Hemoglobin 12.7 g/dL (12.2-16.2) Hematocrit 38.1 % (36.0-46.0) Mean Corpuscular Volume 84.8 fL (80.0-100.0) Mean Corpuscular Hemoglobin 28.3 pg (28.0-32.0) Mean Corpuscular Hemoglobin Concent 33.4 g/dL (32.0-36.0) Red Cell Distribution Width 13.4 % (11.8-14.3) Platelet Count 124 10^3/uL (140-450) Mean Platelet Volume 9.1 fL (6.9-10.8) Neutrophils (%) (Auto) 78.1 % (37.0-80.0) Lymphocytes (%) (Auto) 13.3 % (10.0-50.0) Monocytes (%) (Auto) 8.0 % (0.0-12.0) Eosinophils (%) (Auto) 0.2 % (0.0-7.0) Basophils (%) (Auto) 0.4 % (0.0-2.0) Neutrophils # (Auto) 6.4 10 ^3/uL (1.6-8.6) Lymphocytes # (Auto) 1.1 10 ^3/uL (0.4-5.4) Monocytes # (Auto) 0.7 10 ^3/uL (0-1.3) Eosinophils # (Auto) 0 10 ^3/uL (0-0.8) Basophils # (Auto) 0 10 ^3/uL (0-0.2) Nucleated Red Blood Cells 0.0 % Sodium Level 129 mmol/L (136-145) Potassium Level 4.1 mmol/L (3.5-5.1) Chloride Level 97 mmol/L (98-107) Carbon Dioxide Level 23 mmol/L (20-31) Anion Gap 9 (5-15) Blood Urea Nitrogen 22 mg/dL (9-23) Creatinine 1.06 mg/dL (0.550-1.02) Glomerular Filtration Rate Calc 62 mL/min (>90) BUN/Creatinine Ratio 20.8 (10.0-20.0) Serum Glucose 309 mg/dL (74-106) Hemoglobin A1c 12.9 % A1C (<5.7) Calcium Level 9.3 mg/dL (8.7-10.4) Hepatitis B Surface Antigen Negative (Negative) Hepatitis C Antibody Negative (Negative) Lactic Acid Level 1.7 mmol/L (0.4-2.0) Troponin I High Sensitivity < 3 ng/L (</=34) Test 04/08/24 16:15 04/08/24 15:45 Magnesium Level 1.7 mg/dL (1.6-2.6) Total Bilirubin 0.9 mg/dL (0.2-1.0) Aspartate Amino Transferase (AST) 21 U/L (13-40) Alanine Aminotransferase (ALT) 48 U/L (7-40) Alkaline Phosphatase 112 U/L (46-116) Total Protein 7.4 g/dL (5.7-8.2) Albumin 4.9 g/dL (3.2-4.8) Beta-Hydroxybutyric Acid 1.645 mmol/L (< 0.4) Urine Color Light-orange (Yellow) Urine Clarity Ex.turbid (Clear) Urine pH 5.5 (5.0-9.0) Urine Specific [place] 1.020 (1.001-1.035) Urine Protein 3+ (Negative) Urine Ketones 1+ (Negative) Urine Blood 2+ /uL (Negative) Urine Nitrite Negative (Negative) Urine Bilirubin Negative (Negative) Urine Urobilinogen Normal mg/dL (Negative) Urine Leukocyte Esterase 2+ /uL (Negative) Urine RBC 14 /hpf (0 - 4) Urine WBC Clumps Present /hpf (None Seen) Urine Microscopic WBC 128 /HPF (0-5) Urine Squamous Epithelial Cells Mod /hpf (<5) Urine Bacteria Many /hpf (None Seen) Urine Hyaline Casts Few /lpf (0 - 2) Urine Mucus Few (None Seen) Urine Yeast (Budding) Moderate /hpf (None Seen) Urine Glucose 4+ mg/dL (Normal) Urine Opiates Screen Neg (NEGATIVE) Urine Fentanyl Screen Neg (NEGATIVE) Urine Barbiturates Screen Neg (NEGATIVE) Urine Phencyclidine Screen Neg (NEGATIVE) Urine Amphetamines Screen Neg (NEGATIVE) Urine Benzodiazepines Screen Neg (NEGATIVE) Urine Cocaine Screen Neg (NEGATIVE) Urine Cannabinoids Screen Neg (NEGATIVE) Other Laboratory Tests 04/09/24 05:07 Brief Hx & Hospital Course: Admitted for acute urinary tract infection and pyelonephritis treated with Rocephin blood cultures pending urine cultures grew E coli sensitive to Rocephin and Cipro. Discharged home on Cipro UTI. CT abdomen pelvis without contrast negative the patient is afebrile stable vital signs at the time of discharge. Consults/Reason for consult None Operations or Procedures CT abdomen pelvis without contrast Condition at Discharge: Fair Final Diagnosis/Problems List Sepsis Secondary to urinary tract infection: Blood cultures pending, urine cultures growing E coli sensitive to Rocephin and Levaquin Acute pyelonephritis Hypertension History of DC status post stents: Continue Brilinta Uncontrolled diabetes: Insulin sliding scale Hypercholesterolemia: Lipitor History of recurrent UTI CT abdomen pelvis without contrast neg Discharge Disposition: Home Discharge Instruct/Medications Diet: Regular Activity: Light activity Follow Up/Referral: Follow up with your primary Dr in one week Use medications as prescribed Medications: Cipro transmitted to the pharmacy 35 (Time taken for discharge summary 35 minutes) Discharge Statement: "Patient was advised to return to the ER or call 911 if any headaches, dizziness, shortness of breath, chest pain, abdominal pain, bleeding, fevers, or worsening of medical condition. Patient was counseled about treatment plan, medications, possible side effects, patientverbalized understanding. All questions were answered to the best of my ability. This discharge took greater then 30 minutes in planning, reviewing documentation, counseling the patient, and discussing with other team members." ASSESSMENT ASSESSMENT Hospital Course Improved Assessment Sepsis Secondary to urinary tract infection: Blood cultures pending, urine cultures growing E coli sensitive to Rocephin and Levaquin Acute pyelonephritis Hypertension History of DC status post stents: Continue Brilinta Uncontrolled diabetes: Insulin sliding scale Hypercholesterolemia: Lipitor History of recurrent UTI CT abdomen pelvis without contrast neg Date of Service: Apr 10, 2024 Billing Provider: JJ HANNON MD Common Visit Codes: [id number] DISCH DAY >30min JJ HANNON MD Apr 10, 2024 10:05
[2024-04-10] MEDS ORDERED: TRAM-626 PO (10:13)
[2024-04-10 12:49] VITALS: BP 139/83; PULSE 79; RESP 18; TEMP 98.3; O2SAT 97
== END 2024-04-10 16:47 | disposition home or self-care (01) | DRG 872 ==
LOC: ER 15:16 → OVERFLOW 19:33 → EAST 04-09 01:57
PROVIDERS: ADMIT Family Medicine; ATTEND Family Medicine
DX: A41.51 Sepsis due to Escherichia coli [E. coli] (principal); N10 Acute pyelonephritis; N17.9 Acute kidney failure, unspecified; E87.1 Hypo-osmolality and hyponatremia; Z20.822 Contact with and (suspected) exposure to COVID-19; I10 Essential (primary) hypertension; E11.9 Type 2 diabetes mellitus without complications; E78.00 Pure hypercholesterolemia, unspecified; B96.20 Unspecified Escherichia coli [E. coli] as the cause of diseases classified elsewhere; Z79.02 Long term (current) use of antithrombotics/antiplatelets; Z90.710 Acquired absence of both cervix and uterus; I25.2 Old myocardial infarction; Z87.442 Personal history of urinary calculi; Z95.5 Presence of coronary angioplasty implant and graft; Z79.899 Other long term (current) drug therapy
CPT/HCPCS: 36415; 71045; 74176; 80048; 80053; 80307; 81001; 82010; 82962; 83036; 83605; 83735; 84484; 85025; 86803; 87040; 87086; 87088; 87186; 87340; 87426; 93005; 96361; 96365; 96375; 99291; G0378; J1815; J1885; J2405

== ENCOUNTER → 2024-06-30 | Outpatient (CLI) | payer BC ==
[~2024-06-30] MED LIST changes: +CIPR-173 PO; +TRAM-626 PO
[2024-06-30 12:10] LABS: Basophils # (auto) 0 10 ^3/uL (0-0.2); Basophils % (auto) 0.7 % (0.0-2.0); Eosinophils # (auto) 0.2 10 ^3/uL (0-0.8); Eosinophils % (auto) 2.4 % (0.0-7.0); Hematocrit 40.9 % (36.0-46.0); Hemoglobin 13.7 g/dL (12.2-16.2); Lymphocytes # (auto) 2.4 10 ^3/uL (0.4-5.4); Lymphocytes % (auto) 35.5 % (10.0-50.0); Mean Corpuscular Hemoglobin 28.5 pg (28.0-32.0); Mean Corpuscular Hgb Conc. 33.5 g/dL (32.0-36.0); Mean Corpuscular Volume 85.2 fL (80.0-100.0); Monocytes # (auto) 0.5 10 ^3/uL (0-1.3); Monocytes % (auto) 6.9 % (0.0-12.0); Neutrophils # (auto) 3.6 10 ^3/uL (1.6-8.6); Neutrophils % (auto) 54.5 % (37.0-80.0); Platelet Count (auto) 174 10^3/uL (140-450); Red Cell Distribution Width 13.5 % (11.8-14.3); White Blood Cell 6.7 10^3/uL (4.4-10.8)
[2024-06-30 12:43] LABS: INR 0.97 (0.9-1.15); Partial Thromboplastin Time 25.6 SEC (24.5-34.5); Prothrombin Time 10.3 sec (9.3-11.8)
== END | disposition home or self-care (01) ==
LOC: LAB 11:39
PROVIDERS: ATTEND Internal Medicine
DX: R23.3 Spontaneous ecchymoses (principal)
CPT/HCPCS: 36415; 85025; 85610; 85730